=== PATIENT | male | born 1955 | race Caucasian/White ===

== ENCOUNTER → 2020-04-02 13:40 | Outpatient (CLI) | payer MEDICARE, SELFPAY ==
[2020-04-02 14:08] LABS: Alanine Aminotransferase 28 U/L (12-78); Albumin Level 4.7 g/dl (3.5-5.0); Albumin/Globulin Ratio 1.5 (1.1-1.8); Alkaline Phosphatase 77 U/L (38-126); Anion Gap 16.8 mEq/L (5-15); Aspartate Amino Transferase 31 U/L (17-59); Bilirubin,Total 0.3 mg/dl (0.2-1.3); Blood Urea Nitrogen 24 mg/dl (9-20); Calcium 9.9 mg/dl (8.4-10.2); Carbon Dioxide 25 mmol/L (22.0-30.0); Chloride 98 mmol/L (98-107); Chol/HDL Ratio 2.5 (1-3.5); Cholesterol 145 mg/dl (140-200); Estimated Glomerular Filt Rate 85 ml/min (>60); GFR (African American) 102 ML/MIN (>60); Globulin 3.1 g/dL (1.3-3.2); Glucose 102 mg/dl (74-100); HDL Cholesterol 59 mg/dl (40-60); Potassium 3.8 mmoL/L (3.5-5.1); Sodium 136 mmol/L (136-145); Total Protein,Serum 7.8 g/dl (6.3-8.2); Triglycerides 117 mg/dl (30-150); VLDL Cholesterol 23 mg/dL (0-40)
[2020-04-02 14:19] LABS: Direct LDL Cholesterol 74.54 mg/dL (100-129)
[2020-04-02 14:20] LABS: Basophils # 0.1 K/mm3 (0-0.2); Basophils % 0.6 % (0.1-2.0); Eosinophils # 0.2 K/mm3 (0.0-0.4); Eosinophils % 2.5 % (0.1-12.0); Hematocrit 36.3 % (42.0-52.0); Hemoglobin 12.7 g/dL (14.1-18.0); Lymphocytes # 2.8 K/mm3 (0.7-4.5); Lymphocytes % 34.6 % (10-50); Mean Corpuscular HGB Conc 35.1 g/dL (31.8-35.4); Mean Corpuscular Hemoglobin 30.2 pg (27.0-31.2); Mean Corpuscular Volume 86.2 fl (80-94); Mean Platelet Volume 9.2 fl (7.4-10.4); Monocytes # 0.5 K/mm3 (0.1-1.0); Monocytes % 6.5 % (1.7-9.3); Neutrophils # 4.5 K/mm3 (1.8-7.8); Neutrophils % 55.8 % (37.0-80.0); Platelet Count 250 K/mm3 (142-424); Red Blood Count 4.21 M/mm3 (4.60-6.20); Red Cell Distribution Width 13.3 % (11.5-17.5)
[2020-04-02 15:59] LABS: Prostate Specific Ag Screen 0.4 ng/ml (0.0-4.0)
== END ==
PROVIDERS: Visit Provider Family Medicine
DX: G89.29 Other chronic pain (principal); I10 Essential (primary) hypertension; M54.5 Low back pain; Z12.5 Encounter for screening for malignant neoplasm of prostate
CPT/HCPCS: 80053; 80061; 85025; G0103

== ENCOUNTER → 2020-08-02 12:27 | Outpatient (CLI) | payer MEDICARE, SELFPAY ==
[2020-08-02 12:32] LABS: Microscopic, Urine URINE MICROSCOPIC (MICROSCOPIC)
[2020-08-02 13:06] LABS: Appearance,Urine CLEAR (Clear); Bilirubin,Urine Negative (Negative); Blood, Urine Negative (Negative); Color,Urine YELLOW (Yellow); Glucose,Urine (UA) Negative (Negative); Ketones,Urine Negative (Negative); Leukocyte Esterase,Urine Negative (Negative); Nitrate,Urine Negative (Negative); Protein,Urine Negative (Negative); Urobilinogen,Urine 0.2 EU/dl (0.2)
[2020-08-02 13:10] LABS: Basophils # 0.1 K/mm3 (0-0.2); Basophils % 0.8 % (0.1-2.0); Eosinophils # 0.2 K/mm3 (0.0-0.4); Eosinophils % 3.1 % (0.1-12.0); Hematocrit 39.9 % (42.0-52.0); Hemoglobin 13.5 g/dL (14.1-18.0); Lymphocytes # 2.4 K/mm3 (0.7-4.5); Lymphocytes % 34.5 % (10-50); Mean Corpuscular HGB Conc 33.8 g/dL (31.8-35.4); Mean Corpuscular Hemoglobin 29.2 pg (27.0-31.2); Mean Corpuscular Volume 86.6 fl (80-94); Mean Platelet Volume 9.1 fl (7.4-10.4); Monocytes # 0.4 K/mm3 (0.1-1.0); Neutrophils # 3.8 K/mm3 (1.8-7.8); Neutrophils % 55.6 % (37.0-80.0); Platelet Count 267 K/mm3 (142-424); Red Cell Distribution Width 13.5 % (11.5-17.5); White Blood Count 6.9 K/mm3 (4.8-10.8)
[2020-08-02 13:27] LABS: Alanine Aminotransferase 37 U/L (12-78); Albumin Level 4.7 g/dl (3.5-5.0); Albumin/Globulin Ratio 1.6 (1.1-1.8); Alkaline Phosphatase 63 U/L (38-126); Anion Gap 14.9 mEq/L (5-15); Aspartate Amino Transferase 30 U/L (17-59); Bilirubin,Total 0.4 mg/dl (0.2-1.3); Blood Urea Nitrogen 27 mg/dl (9-20); Calcium 10.2 mg/dl (8.4-10.2); Carbon Dioxide 28 mmol/L (22.0-30.0); Chloride 102 mmol/L (98-107); Estimated Glomerular Filt Rate 85 ml/min (>60); GFR (African American) 102 ML/MIN (>60); Globulin 2.9 g/dL (1.3-3.2); Glucose 110 mg/dl (74-100); Potassium 3.9 mmoL/L (3.5-5.1); Sodium 141 mmol/L (136-145); Total Protein,Serum 7.6 g/dl (6.3-8.2)
[2020-08-02 13:33] LABS: INR 0.92 (0.9-1.1); Prothrombin Time 10.3 seconds (9.4-11.8)
[2020-08-02 13:36] LABS: Intact Parathyroid Hormone 52.7 pg/mL (7.5-53.5)
[2020-08-02 13:42] LABS: 25-OH Vitamin D, Total 48.4 ng/mL (30-100)
== END ==
PROVIDERS: Visit Provider Family Medicine
DX: Z01.818 Encounter for other preprocedural examination (principal); G47.00 Insomnia, unspecified; E55.9 Vitamin D deficiency, unspecified; Z98.890 Other specified postprocedural states; I10 Essential (primary) hypertension; E78.5 Hyperlipidemia, unspecified; D64.9 Anemia, unspecified
CPT/HCPCS: 36415; 80053; 81001; 82306; 83970; 85025; 85610; 86850

== ENCOUNTER → 2020-09-23 09:16 | Outpatient (CLI) | payer MEDICARE, SELFPAY ==
[2020-09-23 09:26] LABS: Microscopic, Urine URINE MICROSCOPIC (MICROSCOPIC)
[2020-09-23 09:54] LABS: Appearance,Urine CLEAR (Clear); Bilirubin,Urine Negative (Negative); Blood, Urine Negative (Negative); Color,Urine YELLOW (Yellow); Glucose,Urine (UA) Negative (Negative); Ketones,Urine Negative (Negative); Leukocyte Esterase,Urine Negative (Negative); Nitrate,Urine Negative (Negative); PH,Urine 6.5 (5.0-8.5); Protein,Urine Negative (Negative); Urobilinogen,Urine 0.2 EU/dl (0.2)
[2020-09-23 10:11] LABS: Squamous Epithelial Cell,Urine Occasional #/hpf (0-5)
[2020-09-23 10:34] LABS: Basophils # 0.1 K/mm3 (0-0.2); Basophils % 0.7 % (0.1-2.0); Eosinophils # 0.2 K/mm3 (0.0-0.4); Eosinophils % 2.2 % (0.1-12.0); Hematocrit 41.6 % (42.0-52.0); Lymphocytes # 3.2 K/mm3 (0.7-4.5); Mean Corpuscular HGB Conc 33.6 g/dL (31.8-35.4); Mean Corpuscular Hemoglobin 29.6 pg (27.0-31.2); Mean Corpuscular Volume 88.2 fl (80-94); Mean Platelet Volume 9.3 fl (7.4-10.4); Monocytes # 0.4 K/mm3 (0.1-1.0); Monocytes % 5.1 % (1.7-9.3); Neutrophils # 4.2 K/mm3 (1.8-7.8); Platelet Count 250 K/mm3 (142-424); Red Blood Count 4.71 M/mm3 (4.60-6.20); Red Cell Distribution Width 13.5 % (11.5-17.5)
[2020-09-23 10:54] LABS: INR 0.93 (0.9-1.1); Prothrombin Time 10.4 seconds (9.4-11.8)
[2020-09-23 12:02] LABS: Alanine Aminotransferase 53 U/L (12-78); Albumin Level 5.2 g/dl (3.5-5.0); Albumin/Globulin Ratio 1.6 (1.1-1.8); Alkaline Phosphatase 72 U/L (38-126); Anion Gap 16.8 mEq/L (5-15); Aspartate Amino Transferase 34 U/L (17-59); Bilirubin,Total 0.7 mg/dl (0.2-1.3); Blood Urea Nitrogen 22 mg/dl (9-20); Calcium 10.5 mg/dl (8.4-10.2); Carbon Dioxide 28 mmol/L (22.0-30.0); Chloride 98 mmol/L (98-107); Estimated Glomerular Filt Rate 75 ml/min (>60); GFR (African American) 91 ML/MIN (>60); Globulin 3.2 g/dL (1.3-3.2); Glucose 119 mg/dl (74-100); Potassium 3.8 mmoL/L (3.5-5.1); Sodium 139 mmol/L (136-145); Total Protein,Serum 8.4 g/dl (6.3-8.2)
[2020-09-23 12:14] LABS: Intact Parathyroid Hormone 53.7 pg/mL (7.5-53.5)
[2020-09-23 12:19] LABS: 25-OH Vitamin D, Total 36.9 ng/mL (30-100)
[2020-09-24 11:25] LABS: Covid-19 Nasal PCR Sendout P&C NEGATIVE
== END ==
PROVIDERS: Visit Provider Family Medicine
DX: Z01.818 Encounter for other preprocedural examination (principal); Z03.818 Encounter for observation for suspected exposure to other biological agents ruled out; M54.5 Low back pain; Z51.81 Encounter for therapeutic drug level monitoring; E55.9 Vitamin D deficiency, unspecified
CPT/HCPCS: 36415; 80053; 81001; 82306; 83970; 85025; 85610; 86850; U0004

== ENCOUNTER → 2021-02-24 17:46 | Outpatient (CLI) | payer MEDICARE, SELFPAY ==
[2021-02-24 18:19] LABS: Basophils # 0.1 K/mm3 (0-0.2); Basophils % 0.6 % (0.1-2.0); Eosinophils # 0.2 K/mm3 (0.0-0.4); Eosinophils % 2.5 % (0.1-12.0); Hematocrit 39.3 % (42.0-52.0); Hemoglobin 13.5 g/dL (14.1-18.0); Lymphocytes # 2.5 K/mm3 (0.7-4.5); Lymphocytes % 29.8 % (10-50); Mean Corpuscular HGB Conc 34.5 g/dL (31.8-35.4); Mean Corpuscular Hemoglobin 28.4 pg (27.0-31.2); Mean Corpuscular Volume 82.3 fl (80-94); Mean Platelet Volume 10.3 fl (7.4-10.4); Monocytes # 0.6 K/mm3 (0.1-1.0); Monocytes % 6.8 % (1.7-9.3); Neutrophils # 5.1 K/mm3 (1.8-7.8); Neutrophils % 60.2 % (37.0-80.0); Platelet Count 252 K/mm3 (142-424); Red Blood Count 4.78 M/mm3 (4.60-6.20); Red Cell Distribution Width 14.8 % (11.5-17.5); White Blood Count 8.4 K/mm3 (4.8-10.8)
[2021-02-24 18:28] LABS: Alanine Aminotransferase 29 U/L (12-78); Albumin Level 4.5 g/dl (3.5-5.0); Albumin/Globulin Ratio 1.6 (1.1-1.8); Alkaline Phosphatase 80 U/L (38-126); Anion Gap 13.8 mEq/L (5-15); Aspartate Amino Transferase 34 U/L (17-59); Bilirubin,Total 0.5 mg/dl (0.2-1.3); Blood Urea Nitrogen 28 mg/dl (9-20); Calcium 9.3 mg/dl (8.4-10.2); Carbon Dioxide 24 mmol/L (22.0-30.0); Chloride 106 mmol/L (98-107); Estimated Glomerular Filt Rate 97 ml/min (>60); GFR (African American) 117 ML/MIN (>60); Globulin 2.9 g/dL (1.3-3.2); Glucose 96 mg/dl (74-100); Potassium 3.8 mmoL/L (3.5-5.1); Sodium 140 mmol/L (136-145); Total Protein,Serum 7.4 g/dl (6.3-8.2)
== END ==
PROVIDERS: Visit Provider Family Medicine
DX: I10 Essential (primary) hypertension (principal)
CPT/HCPCS: 80053; 85025

== ENCOUNTER → 2021-04-22 12:25 | Outpatient (CLI) | payer MEDICARE, SELFPAY ==
--- NOTE | 2021-04-22 12:30 | XR_ITS ---
PROCEDURE: XR KNEE RT 4V CLINICAL INDICATION: RT knee pain COMPARISON: No exams were available for comparison FINDINGS: No fracture or dislocation. No lytic or blastic change. There is normal mineralization. There are mild osteoarthritic changes involving all 3 compartments. Enthesophyte is present at the superior patellar region. Other findings:None. IMPRESSION: Mild osteoarthritis Dictated by: Johan Maldonado MD 04/22/2021 13:37 Johan Maldonado MD in [place] 04/22/2021 13:37
== END ==
PROVIDERS: PCP Family Medicine; Visit Provider Orthopaedic Surgery
DX: M25.561 Pain in right knee (principal)
CPT/HCPCS: 73564

== ENCOUNTER → 2021-05-20 10:00 | Outpatient (CLI) | payer MEDICARE, SELFPAY ==
--- NOTE | 2021-05-20 10:02 | MR_ITS ---
PROCEDURE: MR KNEE RT WO CON CLINICAL INDICATION: RT knee pain COMPARISON: CR XR KNEE RT 4V from 04/22/2021 TECHNIQUE: Routine multiplanar multi echo sequences are performed without gadolinium enhancement. FINDINGS: The cruciate ligaments, collateral ligaments, and patellar tendon appears intact. There is some heterogeneous increased T2 signal within the quadriceps tendon distally and anteriorly and laterally consistent with a partial tear of the anterior bundles of the quadriceps tendon.. The posterior horn of the medial meniscus has an abnormal contour centrally along its lateral aspect with increased T2 signal involving the posterior horn more medial with some truncation of the body of the medial meniscus consistent with medial meniscal tear. There is some irregularity of the patellar cartilage with minimal lateral patellar subluxation. The patellofemoral ligaments appear intact. There are mild osteoarthritic changes of the medial and lateral compartment. No bone bruise apparent. Small knee joint effusion is present. A marker is placed along the anterior proximal tibia at the patient's area of pain which represents the tibial tuberosity region. There is no abnormal signal at this area. No fluid collections or bony abnormalities apparent. There is some minimal subcutaneous edema at this region. IMPRESSION: 1. Tear of the posterior horn of the medial meniscus as described above 2. Small knee joint effusion with mild osteoarthritic change 3. Partial tear of the quadriceps tendon anterior bundle age indeterminate 4. Minimal amount of subcutaneous edema at the tibial tuberosity. No fluid collection or mass apparent Dictated by: Johan Maldonado MD 05/20/2021 15:31 Johan Maldonado MD in [place] 05/20/2021 15:31
== END ==
PROVIDERS: PCP Family Medicine; Visit Provider Orthopaedic Surgery
DX: G89.29 Other chronic pain (principal); M16.11 Unilateral primary osteoarthritis, right hip; M25.561 Pain in right knee
CPT/HCPCS: 73721

== ENCOUNTER → 2021-07-04 10:43 | Outpatient (CLI) | payer MEDICARE, SELFPAY ==
--- NOTE | 2021-07-04 10:56 | XR_ITS ---
PROCEDURE: XR CHEST 2V CLINICAL HISTORY: preop; surgery 07/07/21; hypertension COMPARISON: No exams were available for comparison FINDINGS: The cardiomediastinal silhouette and pulmonary vascularity are within normal limits. The lungs are clear without infiltrates, suspicious nodules, or pleural effusions. Degenerative change thoracic spine IMPRESSION: No acute findings. Dictated by: Johan Maldonado MD 07/04/2021 12:13 Johan Maldonado MD in [place] 07/04/2021 12:13
[2021-07-04 11:20] LABS: Basophils # 0.1 K/mm3 (0-0.2); Basophils % 1.2 % (0.1-2.0); Eosinophils # 0.2 K/mm3 (0.0-0.4); Eosinophils % 3.2 % (0.1-12.0); Hematocrit 42.4 % (42.0-52.0); Hemoglobin 14.5 g/dL (14.1-18.0); Lymphocytes # 2.5 K/mm3 (0.7-4.5); Mean Corpuscular HGB Conc 34.3 g/dL (31.8-35.4); Mean Corpuscular Hemoglobin 29.8 pg (27.0-31.2); Mean Corpuscular Volume 87.1 fl (80-94); Mean Platelet Volume 9.1 fl (7.4-10.4); Monocytes # 0.4 K/mm3 (0.1-1.0); Monocytes % 5.3 % (1.7-9.3); Neutrophils # 3.3 K/mm3 (1.8-7.8); Neutrophils % 51.4 % (37.0-80.0); Platelet Count 255 K/mm3 (142-424); Red Blood Count 4.87 M/mm3 (4.60-6.20); Red Cell Distribution Width 13.9 % (11.5-17.5); White Blood Count 6.5 K/mm3 (4.8-10.8)
[2021-07-04 12:07] LABS: Alanine Aminotransferase 31 U/L (12-78); Albumin Level 4.5 g/dl (3.5-5.0); Albumin/Globulin Ratio 1.5 (1.1-1.8); Alkaline Phosphatase 68 U/L (38-126); Anion Gap 14.2 mEq/L (5-15); Aspartate Amino Transferase 30 U/L (17-59); Bilirubin,Total 0.5 mg/dl (0.2-1.3); Blood Urea Nitrogen 25 mg/dl (9-20); Calcium 10.1 mg/dl (8.4-10.2); Carbon Dioxide 25 mmol/L (22.0-30.0); Chloride 105 mmol/L (98-107); Estimated Glomerular Filt Rate 135 ml/min (>60); GFR (African American) 163 ML/MIN (>60); Glucose 118 mg/dl (74-100); Potassium 4.2 mmoL/L (3.5-5.1); Sodium 140 mmol/L (136-145); Total Protein,Serum 7.5 g/dl (6.3-8.2)
== END ==
PROVIDERS: Visit Provider Orthopaedic Surgery
DX: Z01.818 Encounter for other preprocedural examination (principal); Z11.52 Encounter for screening for COVID-19; U07.1 COVID-19; M25.561 Pain in right knee
CPT/HCPCS: 36415; 71046; 80053; 85025; C9803; U0003; U0005

== ENCOUNTER → 2022-03-16 15:42 | Outpatient (CLI) | payer MEDICARE, SELFPAY ==
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
== END ==
PROVIDERS: PCP Family Medicine; Visit Provider Family Medicine
DX: M25.532 Pain in left wrist (principal)
CPT/HCPCS: 73110

== ENCOUNTER → 2022-03-30 15:58 | Outpatient (CLI) | payer MEDICARE, SELFPAY ==
--- NOTE | 2022-03-30 15:58 | MR_ITS ---
PROCEDURE INFORMATION: Exam: MR Left Upper Extremity Joint Without Contrast; Wrist Exam date and time: 03/30/2022 4:25 PM Age: 66 years old Clinical indication: Pain; Wrist; Left; Additional info: Scaphoid FX TECHNIQUE: Imaging protocol: Magnetic resonance imaging of the Left upper extremity without contrast. Exam focused on the wrist. COMPARISON: CR XR WRIST LT W SCAPHOID 03/16/2022 3:50 PM FINDINGS: Bones and cartilage: There is no acute fracture or dislocation. No aggressive bone lesions are present. Specifically, there is no fracture of the scaphoid. Joint spaces: A mild effusion involves the wrist. There is mild primary osteoarthritis of the thumb carpometacarpal joint. Scapholunate ligament: Unremarkable. No tear. Lunotriquetral ligament: Unremarkable. No tear. Triangular fibrocartilage complex: Unremarkable. No tear. Flexor compartment tendons: Unremarkable. No tear. Extensor compartment tendons: Trace extensor tenosynovitis is present. No tendon tear. Muscles: Unremarkable. No acute abnormality. Soft tissues: No suspicious soft tissue mass. IMPRESSION: 1. No fracture of the scaphoid or other imaged bone in the region. 2. Mild primary osteoarthritis of the thumb carpometacarpal joint. 3. Trace extensor tenosynovitis. 4. Mild wrist joint effusion.
== END ==
PROVIDERS: PCP Family Medicine; Visit Provider Family Medicine
DX: M25.532 Pain in left wrist (principal); S62.002A Unspecified fracture of navicular [scaphoid] bone of left wrist, initial encounter for closed fracture
CPT/HCPCS: 73221

== ENCOUNTER → 2022-09-25 11:40 | Outpatient (CLI) | payer MEDICARE, SELFPAY ==
[2022-09-25 13:41] LABS: Basophils # 0.1 K/mm3 (0-0.2); Basophils % 0.8 % (0.1-2.0); Eosinophils # 0.2 K/mm3 (0.0-0.4); Hematocrit 40.5 % (42.0-52.0); Hemoglobin 13.9 g/dL (14.1-18.0); Lymphocytes # 2.4 K/mm3 (0.7-4.5); Lymphocytes % 32.4 % (10-50); Mean Corpuscular HGB Conc 34.2 g/dL (31.8-35.4); Mean Corpuscular Hemoglobin 29.6 pg (27.0-31.2); Mean Corpuscular Volume 86.5 fl (80-94); Mean Platelet Volume 9.5 fl (7.4-10.4); Monocytes # 0.4 K/mm3 (0.1-1.0); Monocytes % 5.7 % (1.7-9.3); Neutrophils # 4.3 K/mm3 (1.8-7.8); Neutrophils % 58.2 % (37.0-80.0); Platelet Count 247 K/mm3 (142-424); Red Blood Count 4.68 M/mm3 (4.60-6.20); Red Cell Distribution Width 13.3 % (11.5-17.5); White Blood Count 7.3 K/mm3 (4.8-10.8)
[2022-09-25 14:07] LABS: Alanine Aminotransferase 38 U/L (12-78); Albumin Level 4.7 g/dl (3.5-5.0); Albumin/Globulin Ratio 1.7 (1.1-1.8); Alkaline Phosphatase 65 U/L (38-126); Anion Gap 12.5 mEq/L (5-15); Aspartate Amino Transferase 32 U/L (17-59); Bilirubin,Total 0.6 mg/dl (0.2-1.3); Blood Urea Nitrogen 27 mg/dl (9-20); Calcium 9.3 mg/dl (8.4-10.2); Carbon Dioxide 30 mmol/L (22.0-30.0); Chloride 101 mmol/L (98-107); Chol/HDL Ratio 3.7 (1-3.5); Cholesterol 174 mg/dl (140-200); Estimated Glomerular Filt Rate 75 ml/min (>60); GFR (African American) 90 ML/MIN (>60); Globulin 2.8 g/dL (1.3-3.2); Glucose 118 mg/dl (74-100); HDL Cholesterol 47 mg/dl (40-60); Potassium 3.5 mmoL/L (3.5-5.1); Sodium 140 mmol/L (136-145); Total Protein,Serum 7.5 g/dl (6.3-8.2); Triglycerides 276 mg/dl (30-150); VLDL Cholesterol 55 mg/dL (0-40)
[2022-09-25 14:30] LABS: Direct LDL Cholesterol 86.81 mg/dL (100-129)
[2022-09-25 14:42] LABS: Prostate Specific Ag Screen 0.4 ng/ml (0.0-4.0); Thyroid Stimulating Hormone 1.47 uIU/mL (0.465-4.68)
== END ==
PROVIDERS: PCP Family Medicine; Visit Provider Family Medicine
DX: I10 Essential (primary) hypertension (principal); Z12.5 Encounter for screening for malignant neoplasm of prostate; Z86.73 Personal history of transient ischemic attack (TIA), and cerebral infarction without residual deficits; Z79.899 Other long term (current) drug therapy
CPT/HCPCS: 80053; 80061; 84443; 85025; G0103

== ENCOUNTER → 2023-01-11 18:37 | Outpatient (CLI) | payer MEDICARE, SELFPAY ==
[2023-01-11 19:16] LABS: Basophils % 0.4 % (0.1-2.0); Eosinophils # 0.2 K/mm3 (0.0-0.4); Eosinophils % 2.8 % (0.1-12.0); Hematocrit 38.7 % (42.0-52.0); Lymphocytes # 2.5 K/mm3 (0.7-4.5); Lymphocytes % 32.6 % (10-50); Mean Corpuscular HGB Conc 33.7 g/dL (31.8-35.4); Mean Corpuscular Hemoglobin 30.1 pg (27.0-31.2); Mean Corpuscular Volume 89.4 fl (80-94); Monocytes # 0.6 K/mm3 (0.1-1.0); Monocytes % 7.2 % (1.7-9.3); Neutrophils # 4.4 K/mm3 (1.8-7.8); Platelet Count 213 K/mm3 (142-424); Red Blood Count 4.32 M/mm3 (4.60-6.20); Red Cell Distribution Width 13.3 % (11.5-17.5); White Blood Count 7.7 K/mm3 (4.8-10.8)
[2023-01-11 19:46] LABS: Alanine Aminotransferase 45 U/L (12-78); Albumin Level 4.5 g/dl (3.5-5.0); Albumin/Globulin Ratio 1.6 (1.1-1.8); Alkaline Phosphatase 61 U/L (38-126); Anion Gap 11.8 mEq/L (5-15); Aspartate Amino Transferase 44 U/L (17-59); Bilirubin,Total 0.7 mg/dl (0.2-1.3); Blood Urea Nitrogen 21 mg/dl (9-20); Calcium 9.3 mg/dl (8.4-10.2); Carbon Dioxide 28 mmol/L (22.0-30.0); Chloride 105 mmol/L (98-107); Chol/HDL Ratio 3.5 (1-3.5); Cholesterol 166 mg/dl (140-200); Estimated Glomerular Filt Rate 84 ml/min (>60); GFR (African American) 102 ML/MIN (>60); Globulin 2.8 g/dL (1.3-3.2); Glucose 91 mg/dl (74-100); HDL Cholesterol 47 mg/dl (40-60); Potassium 3.8 mmoL/L (3.5-5.1); Sodium 141 mmol/L (136-145); Total Protein,Serum 7.3 g/dl (6.3-8.2); Triglycerides 230 mg/dl (30-150); VLDL Cholesterol 46 mg/dL (0-40)
[2023-01-11 19:49] LABS: Hemoglobin A1C 5.6 % (4.0-6.0)
[2023-01-11 19:57] LABS: Direct LDL Cholesterol 85.51 mg/dL (100-129)
== END ==
PROVIDERS: PCP Family Medicine; Visit Provider Family Medicine
DX: I10 Essential (primary) hypertension (principal); E11.9 Type 2 diabetes mellitus without complications; Z86.73 Personal history of transient ischemic attack (TIA), and cerebral infarction without residual deficits
CPT/HCPCS: 80053; 80061; 83036; 85025

== ENCOUNTER → 2023-02-01 12:46 | Outpatient (POV) | payer MEDICARE, SELFPAY ==
[2023-02-01 13:10] VITALS: BP 136/73; PULSE 67; RESP 18; O2SAT 98; BMI 28.5
--- NOTE | 2023-02-01 14:48 | EXP.PAIN.OV ---
HPI Data of Consult Patient: new to practice Consult date: 02/01/23 Requesting Physician: Marcia Guerrero APRN Primary Care Provider: Nikos Parada MD Consult Narrative Reason for consult: Mid/low back pain, bilateral lower extremity pain History of present illness: Mr. Lamar is a 67 year old male who presents today as a new patient. He is a referral from Dr. Drew Parada's office. Today he rates his pain a 8 out of 10. He states his pain is all in his low back with radiating symptoms into his bilateral lower extremities. Patient states this has been going on for years and progressively worsened over time. Patient denies any new trauma or injury. He describes this pain as a sharp, stabbing sensation that is worse with increased activity. He does state the pain is debilitating. It does interfere with his ability to perform activities of daily living such as cooking and cleaning. Patient has had a laminectomy in 2016 as well as 2 prior fusions 1 at [facility] and one at in 2018. Patient does state that the second procedure was due to loose hardware that they were going to go in and fix however he had a stroke between that timeframe and it had to be postponed for a year. He does state following his last surgery he did start having more mid back pain as well. Patient has had multiple injections from a previous facility there in [facility]. He states none of them seem to provide prolonged relief. He is also had an external spinal stimulator with no additional relief. Patient has tried [id number] medications such as Tylenol and ibuprofen along with heat and ice and topicals with no additional relief. Patient had physical therapy however he states he had no additional change but occasionally it would cause worsening pain symptoms. Patient states that his pain does affect his ability to sleep and he is on a sleeping medication due to this. Patient does have to take frequent breaks when walking. He states he continues to walk 1 mile per day. He does use a cane due to his low back pain as well as his residual balance issues related to his stroke. Patient is interested and possible pain pump therapy. His Hernan is [id number]. Its been reviewed and appropriate. CC: Marcia Guerrero APRN [facility] Disclaimer: The information contained in this section may have been updated after the patient was seen, as this information can be updated by other users. Medical History (Updated 02/01/23 @ 14:53 by Marcia Guerrero APRN) Carotid artery disease HLD (hyperlipidemia) HTN (hypertension) Stroke Surgical History (Updated 02/01/23 @ 13:14 by Hillary Bacon, RN) H/O carotid endarterectomy History of laminectomy History of lumbar fusion Social History (Updated 02/01/23 @ 13:17 by Hillary Bacon, RN) Smoking Status: Former smoker alcohol intake: current substance use type: denies use current occupational status: other Travel in the last 8 weeks: None household members: significant other housing: house Review of Systems Review of Systems Review of systems:: pertinent systems reviewed and negative unless documented below Review of systems (narrative): Review of Systems: General: No recent weight changes, no fever, no sleep disturbances Respiratory: No cough, no shortness of air, no recurring pulmonary infections Cardiovascular/peripheral vascular: No chest pain, no palpitations, no edema, no shortness of breath Gastrointestinal: No new onset incontinence, normal bowel movements reported Genitourinary: No new onset incontinence Musculoskeletal: Low back pain, bilateral leg pain Psychiatric: [Normal mood/affect] Neurological: [Denies weakness in extremities], [denies balance issues] Meds Home Medications and Allergies Home Medications Medication Instructions Recorded Confirmed Type multivitamin 1 cap PO DAILY VITAMIN 04/02/20 02/01/23 History aspirin 81 mg tablet,delayed 81 mg PO DAILY Blood thinner 02/01/23
== END ==
PROVIDERS: PCP Family Medicine; Visit Provider Nurse Practitioner Family
DX: M51.16 Intervertebral disc disorders with radiculopathy, lumbar region (principal); M96.1 Postlaminectomy syndrome, not elsewhere classified; Z98.890 Other specified postprocedural states
CPT/HCPCS: 99202; G0463

== ENCOUNTER → 2023-02-01 13:37 | Outpatient (CLI) | payer MEDICARE, SELFPAY ==
--- NOTE | 2023-02-01 13:42 | XR_ITS ---
FINAL REPORT CLINICAL HISTORY: mid and lower back pain FINDINGS: THORACIC SPINE Two views demonstrate no acute fracture. There is moderate diffuse spondylosis There is no malalignment. IMPRESSION: Degenerative changes as above. LUMBAR SPINE Three views demonstrate no acute fracture. There are postoperative changes from fusion from L2-S1. There is moderate diffuse degenerative disc disease. There is no malalignment. IMPRESSION: Degenerative and postoperative changes as above. Reviewed, Interpreted and Dictated by Sveta Mercedes MD Transcribed by Michelle Avelar Authenticated and [facility]
== END ==
PROVIDERS: PCP Family Medicine; Visit Provider Anesthesiology
DX: M54.6 Pain in thoracic spine (principal); M54.50 Low back pain, unspecified
CPT/HCPCS: 72084; 99202; G0463

== ENCOUNTER → 2023-02-16 11:50 | Outpatient (POV) | payer MEDICARE, SELFPAY ==
--- NOTE | 2023-02-16 12:33 | EXP.PAIN.SOA ---
[facility] Pain Management SOAP Note Subjective:: This patient is a very pleasant 67-year-old male that comes our clinic today for follow-up visit. Receiving thoracic and lumbar x-rays. Patient is status post 2 separate lumbar fusions. X-rays demonstrate degenerative changes in the lumbar spine. Moderate diffuse degenerative disc disease. Patient complains of low back pain that he describes as constant, dull, aching. Patient also complaining of right hip and leg radicular symptoms. Patient has tried and failed multiple cortisone injections. Tried and failed physical therapy. Home exercise program. NSAIDs. Patient does take Tylenol extra strength when the pain is too much. Patient rates his pain today 8/10. Patient is scheduled for a psych eval on February 26, 2023. Objective:: Patient is awake alert [place] x3. In no acute distress. Flexion-extension lumbar spine somewhat guarded secondary to pain. Deep tendon reflexes upper and lower extremities normal. Motor strength upper and lower extremities normal. There is no gross sensory deficit. Gait is normal. Assessment:: A copyDegenerative disc lumbar spine multilevels. He. Lumbar postlaminectomy syndrome. Plan:: Discussed in detail with the patient regarding intrathecal pain pump trial. Also, discussed permanent intrathecal pain pump management. Answered his questions. He will move forward with psych eval on February 26, 2023. He will return to see us following this evaluation and for pain pump trial. The patient's Hernan #[id number] has been reviewed and appropriate [facility] Disclaimer: The information contained in this section may have been updated after the patient was seen, as this information can be updated by other users. Medical History (Updated 02/01/23 @ 14:53 by Marcia Guerrero APRN) Carotid artery disease HLD (hyperlipidemia) HTN (hypertension) Stroke Surgical History (Updated 02/01/23 @ 13:14 by Hillary Bacon RN) H/O carotid endarterectomy History of laminectomy History of lumbar fusion Social History (Updated 02/01/23 @ 13:17 by Hillary Bacon RN) Smoking Status: Former smoker alcohol intake: current substance use type: denies use current occupational status: other Travel in the last 8 weeks: None household members: significant other housing: house
[2023-02-16 13:21] VITALS: BP 113/72; PULSE 62; RESP 18; O2SAT 98; BMI 28.8
== END ==
PROVIDERS: PCP Family Medicine; Visit Provider Nurse Anesthetist, Certified Registered
DX: M51.36 Other intervertebral disc degeneration, lumbar region (principal); M96.1 Postlaminectomy syndrome, not elsewhere classified
CPT/HCPCS: 99212; G0463

== ENCOUNTER 2023-04-13 09:31 | Day surgery (SDC) | payer MEDICARE, SELFPAY ==
[2023-04-13] VITALS (7 sets, daily range): BP systolic 131–161; BP diastolic 69–89; PULSE 54–68; RESP 18–20; TEMP 36.6; O2SAT 97–99; BMI 27.9
--- NOTE | 2023-04-13 11:12 | PC.NURSE ---
pt sitting in chair, rates pain at a 1, dressing in place, C/D/I
--- NOTE | 2023-04-13 11:20 | PC.NURSE ---
pt sitting in chair, rating pain at a 1
--- NOTE | 2023-04-13 11:44 | PC.NURSE ---
pt is sitting in chair, states pain is still at a 1
--- NOTE | 2023-04-13 11:54 | PC.NURSE ---
pt up ambulating at this time, rates pain at 1, dressing still in place, C/D/I
--- NOTE | 2023-04-13 12:48 | P.PCN_ITS ---
Procedure Date: 04/13/23 Time: 12:48 Anesthesiologist:: Moris Jackson MD Complications:: None Pre-procedure Diagnosis:: Postlaminectomy syndrome lumbar spine with lumbar radiculopathy symptoms Post-procedure Diagnosis:: Same Indications for Procedure:: This patient is a pleasant 68-year-old white male who we are treating for low back pain with lumbar radiculopathy symptoms. He has increasing pain in his back and down both legs. He has had previous surgery with hardware in place. He has failed all previous conservative treatments including injections, oral medications, physical therapy and is not a candidate for surgery. He has had a successful psychological evaluation. He presents for intrathecal pump trial today. Procedure Details:: Pain pump trial Informed consent was obtained and the risk and benefits of the procedure was e xplained to the patient. The patient was taken to the procedure room and placed prone on the procedure table. Patient was prepped and draped in sterile fashion. C-arm fluoroscopy was used to view the lumbar spine. The skin and subcutaneous tissues were anesthetized using lidocaine. I placed a 18-gauge spinal needle into the L4-5 interspace and advanced until clear CSF was obtained. After this intrathecal catheter was inserted and advanced very easily to the L1 vertebral body. The needle was withdrawn. We were able to freely withdraw clear CSF through the catheter. We then injected intrathecal opioid single shot bolus of 25 mcg followed by saline and followed by the previous CSF that was withdrawn. The needle and catheter were then removed and a Band-Aid was placed. Patient tolerated the procedure well with no complications. We reevaluated the patient after 30 minutes to 1 hour. He was also reassessed by physical therapy. Pain was 90 to 100% better. He was much more functional. By all indications this did seem to be a successful intrathecal pump trial. Patient was discharged home neurologic intact with good relief of pain symptoms. Plan and Disposition:: We will follow-up with him in 1 week. We will plan on permanent placement with intrathecal morphine 1 mg per ml to start at 100 mcg/day. Catheter tip will be at the T8 vertebral body.
== END 2023-04-13 12:20 | disposition home or self-care (01) ==
PROVIDERS: PCP Family Medicine; Visit Provider Anesthesiology
DX: M96.1 Postlaminectomy syndrome, not elsewhere classified (principal); M54.16 Radiculopathy, lumbar region
CPT/HCPCS: 62323; 96365

== ENCOUNTER → 2023-05-14 10:46 | Outpatient (CLI) | payer MEDICARE, SELFPAY ==
[2023-05-14 11:18] LABS: Basophils % 0.4 % (0.1-2.0); Eosinophils # 0.3 K/mm3 (0.0-0.4); Eosinophils % 3.3 % (0.1-12.0); Hematocrit 40.5 % (42.0-52.0); Hemoglobin 13.2 g/dL (14.1-18.0); Lymphocytes # 2.3 K/mm3 (0.7-4.5); Lymphocytes % 31.6 % (10-50); Mean Corpuscular HGB Conc 32.5 g/dL (31.8-35.4); Mean Corpuscular Hemoglobin 29.7 pg (27.0-31.2); Mean Corpuscular Volume 91.3 fl (80-94); Mean Platelet Volume 8.5 fl (7.4-10.4); Monocytes # 0.4 K/mm3 (0.1-1.0); Monocytes % 5.4 % (1.7-9.3); Neutrophils # 4.4 K/mm3 (1.8-7.8); Neutrophils % 59.3 % (37.0-80.0); Platelet Count 209 K/mm3 (142-424); Red Blood Count 4.43 M/mm3 (4.60-6.20); Red Cell Distribution Width 13.9 % (11.5-17.5); White Blood Count 7.4 K/mm3 (4.8-10.8)
[2023-05-14 11:36] LABS: Amphetamine/Metha Screen,Urine Negative ng/ml (<1000); Barbiturates Screen,Urine Negative ng/ml (<200)
[2023-05-14 11:37] LABS: Benzodiazepines Screen,Urine Negative ng/ml (<200)
[2023-05-14 11:38] LABS: Cannabinoid Screen,Urine Negative ng/ml (<50); Cocaine Screen,Urine Negative ng/ml (<300)
[2023-05-14 11:39] LABS: Methadone Screen,Urine Negative ng/ml (<300)
[2023-05-14 11:40] LABS: Opiate Screen,Urine Negative ng/ml (<300); Phencyclidine Screen,Urine Negative ng/ml (<25)
[2023-05-14 12:06] LABS: Chloride 103 mmol/L (98-107)
[2023-05-14 12:07] LABS: Sodium 138 mmol/L (136-145)
[2023-05-14 12:09] LABS: Blood Urea Nitrogen 30 mg/dl (9-20); Estimated Glomerular Filt Rate 96 ml/min (>60); GFR (African American) 116 ML/MIN (>60)
[2023-05-14 12:10] LABS: Calcium 9.9 mg/dl (8.4-10.2); Carbon Dioxide 26 mmol/L (22.0-30.0); Glucose 103 mg/dl (74-100)
== END ==
PROVIDERS: PCP Family Medicine; Visit Provider Anesthesiology
DX: Z01.818 Encounter for other preprocedural examination (principal); Z79.899 Other long term (current) drug therapy
CPT/HCPCS: 36415; 80048; 80305; 85025

== ENCOUNTER 2023-05-18 08:53 | Day surgery (SDC) | payer MEDICARE, SELFPAY ==
[2023-05-15 16:52] VITALS: BMI 28.7
[2023-05-18] VITALS (8 sets, daily range): BP systolic 88–123; BP diastolic 47–72; PULSE 53–67; RESP 18; TEMP 36.2–43; O2SAT 95–96; BMI 27.8
--- NOTE | 2023-05-18 12:05 | P.PNANES_ITS ---
[facility] Disclaimer: The information contained in this section may have been updated after the patient was seen, as this information can be updated by other users. Medical History Carotid artery disease HLD (hyperlipidemia) HTN (hypertension) Stroke Surgical History H/O carotid endarterectomy History of laminectomy History of lumbar fusion Family History Other No significant family history Social History Smoking Status: Former smoker alcohol intake: current substance use type: denies use current occupational status: other Travel in the last 8 weeks: None household members: significant other housing: house [facility] Anesthesia Checklist Patient Identification Patient Identification: Verbal (Name & ) Structural Data Admitted From: Home Planned Operative Procedure/s: pain pump insertion Consent for Planned Operative Procedure(s) Verified: Yes NPO Status Verified Time NPO: 00:00 Additional verifications Anesthesia Reactions: No Hx Blood Transfusions: No Airway Assessment Mallampati Score:: Class I C-Spine Mobility Assessed: Yes TMJ Mobility Assessed: Yes Dentition: Good Dentition Neurological Assessment Level of Consciousness: Awake, Alert and Appropriate Anesthesia Plan Anesthesia Risk discussed: Yes Anesthesia Plan: Verified ASA Class: II Anesthesia Type: MAC
--- NOTE | 2023-05-18 16:08 | P.OP_ITS ---
Date of procedure: 05/18/23 Pre-op Diagnosis:: Postlaminectomy syndrome lumbar spine with lumbar radiculopathy symptoms Post-op Diagnosis:: Same Procedure performed:: Permanent placement intrathecal pain pump with tunneled intrathecal catheter and pump generator placement Surgeon:: Moris Jackson MD TRUCK DISPATCHER:: Other Anesthesia: MAC Estimated blood loss (mL): 5 Clinical Note:: This patient is a pleasant 68-year-old white male who we are treating for low back pain with lumbar radiculopathy symptoms. He has increasing pain in his back and down both legs. He has had previous surgery with hardware in place. He has failed all previous conservative treatments including oral medications, physical therapy, injections and he is not a candidate for any further surgery. He has had a successful psychological evaluation and a successful intrathecal pump trial. He presents for permanent placement of his intrathecal pain pump today. Operative findings:: None Operative note:: Informed consent was obtained and the risk and benefits of the procedure were explained to the patient. The patient was taken to the operating room placed prone on the procedure table. He was prepped and draped in sterile fashion. C- arm fluoroscopy was used to view the right flank. [place] between the 12th rib and iliac crest we anesthetize the skin and subcutaneous tissues. I made an incision and dissected out the pump generator pocket. C-arm fluoroscopy was then used to view the lumbar spine. The skin and subcutaneous tissues adjacent to the L4-L5 and L5-S1 interspace were anesthetized using lidocaine. I made an incision and dissected down to the lumbar paraspinous fascia. A 17-gauge spinal needle was inserted and advanced into the L4-5 interspace until clear CSF was obtained. After this intrathecal catheter was inserted and advanced very easily to the T8 vertebral body. Catheter location was checked in AP and lateral views of the catheter tip was found to be in posterior position. The stylette of the catheter and the needle withdrawn. The catheter was secured to the fascia with an anchoring device and 2-0 Prolene. I then filled the pump with 20 mils of intrathecal morphine 1 mg/mL. I tunneled the catheter from the back to the pump pocket and attached catheter to the pump. We withdrew clear CSF through the sideport. An antibiotic pouch was placed in the generator pocket. We will place the pump in the pocket. Both incisions were then closed with 2-0 Vicryl followed by subcutaneous absorbable lenora and 4-0 nylon. Patient tolerated the procedure well with no complications. Pump was interrogated and started at 100 mcg/day of intrathecal morphine. Patient was discharged home neurologic intact with good relief of pain symptoms. Plan and disposition: We will follow-up with this patient in 1 week for wound check. We will follow-up in 2 to 3 weeks for suture removal. We did send the patient home with Bactrim DS twice a day for 5 days. Condition: stable Disposition: PACU Complications:: None
== END 2023-05-18 14:31 | disposition home or self-care (01) ==
PROVIDERS: PCP Family Medicine; Visit Provider Anesthesiology
DX: M96.1 Postlaminectomy syndrome, not elsewhere classified (principal); M54.16 Radiculopathy, lumbar region
CPT/HCPCS: 62350; 62362; 96374; C1755; C1772

== ENCOUNTER → 2023-05-24 09:09 | Outpatient (POV) | payer MEDICARE, SELFPAY ==
--- NOTE | 2023-05-24 09:59 | EXP.PAIN.PRO ---
Procedure Date: 05/24/23 Time: 09:59 Anesthesiologist:: Marcia Guerrero APRN Complications:: None Pre-procedure Diagnosis:: Degenerative disc disease of lumbar spine with lumbar radiculopathy symptoms, lumbar postlaminectomy syndrome Post-procedure Diagnosis:: Same Indications for Procedure:: Patient is a pleasant 68-year-old male who presents today for follow-up of 1 week postop of intrathecal pain pump implant on 05/18/2023. We are currently treating the patient for degenerative disc disease of lumbar spine with lumbar radiculopathy symptoms, lumbar postlaminectomy syndrome. Today he rates his pain a 7 out of 10. Patient denies any new trauma or injury. Patient does state that he did have some intense itching without rash for the first few days however this has gotten significantly better and is not an issue currently. Patient does state that he is a little sore around his incisions however he does not really feel like he has gotten much improvement in his current pain level at this time. Patient is currently managed with morphine 1 mg/mL with a daily dose of 0.1 mg/day. He denies any side effects from this medication. His Hernan and is [id number]. Its been reviewed and appropriate. Physical Exam: General: Alert and oriented x3, no acute distress, pleasant and cooperative Lungs: Respirations even and unlabored, symmetrical chest expansion Eyes: PERRL Musculoskeletal: Flexion and extension of lumbar [spine] somewhat guarded secondary to pain, [antalgic gait noted] Neurological: Speech clear, no gross sensory deficit Procedure Details:: Informed consent was obtained and the risk and benefits of the procedure were explained to the patient. Patient was taken to the procedure room where noninvasive monitoring was placed including noninvasive blood pressure cuff and pulse oximeter. Patient's pump was interrogated and was reprogrammed to morphine 0.11 mg/day. The patient tolerated the procedure well with no complications. Plan and Disposition:: Patient tolerated his intrathecal increase with no complications. I have reviewed with the patient to continue his postop restriction of minimal bending, lifting or twisting, no submerging in water until his incisions are fully healed. Patient states that he was not given an abdominal binder on the surgery date. We will contact the operating room today and see if we can get 1 to be applied to the patient before he leaves the office. I have counseled the patient that we will plan on having him return back in 2 weeks for additional intrathecal adjustment and reprogram as well as having his sutures removed and Steri-Strips applied. Patient's incision sites were clean, dry, well approximated with minimal erythema noted and sutures intact in the midline incision. Patient did have his lateral incision closed with dissolvable lenora and Steri-Strips on the edges that are still intact. Patient will return to office in 2 weeks for reevaluation of symptoms and plan of care. Patient has been instructed to contact the clinic with any concerns before the next appointment. Dr. Jackson has reviewed this note and agrees with this plan of care. This note was dictated using voice recognition software and make contain errors or omissions. -- It Is medically necessary for this patient to continue to have their intrathecal pump refilled at regular intervals. This patient had an intrathecal pain pump implanted after meeting criteria of chronic intractable pain for greater than 3 months and failing conservative treatments. Patient has committed and been compliant to the treatment plan and all planned follow up care. Since implantation of the intrathecal pain pump, the patient has had decreased pain and been more functional. Oral medications have been reduced including intake of oral opioids. Patient continues to do well with intrathecal therapy with decrease in pain symptoms and increase in functional status. Stopping intrathecal me
[2023-05-24 12:45] VITALS: BP 133/76; PULSE 68; RESP 18; O2SAT 100; BMI 27.8
== END | disposition home or self-care (01) ==
PROVIDERS: PCP Family Medicine; Visit Provider Nurse Practitioner Family
DX: M51.16 Intervertebral disc disorders with radiculopathy, lumbar region (principal); M96.1 Postlaminectomy syndrome, not elsewhere classified; Z97.8 Presence of other specified devices
CPT/HCPCS: 62368; 99213; G0463

== ENCOUNTER → 2023-06-08 10:16 | Outpatient (POV) | payer MEDICARE, SELFPAY ==
--- NOTE | 2023-06-08 11:15 | A.OFFVIS_ITS ---
[facility] Pain Management SOAP Note Subjective:: This patient is a very pleasant 68-year-old male that comes our clinic today for 3-week follow-up after receiving intrathecal pain pump implantation. Sutures were removed from both incisions. Incisions are clean and dry and well approximated. Patient is very pleased with the results of the intrathecal pain pump implantation. He reports 95% improvement in terms of his overall low back pain as well as bilateral hip and leg pain. Patient rates his pain today 2/10. Patient is currently being managed with morphine sulfate 1 mg/mL at a rate of 0.1100 mg/day. Patient requesting PTM set up today. We will do this for him. Objective:: Patient is awake alert [place] x3. In no acute distress. Flexion-extension lumbar spine somewhat guarded secondary to pain. Deep tendon reflexes upper and lower extremities normal. Motor strength upper and lower extremities normal. There is no gross sensory deficit. Gait is normal. Assessment:: Degenerative disc lumbar spine multilevels. Lumbar radiculopathy. Lumbar postlaminectomy syndrome. Plan:: We will set of the patient's PTM today. We will educate the patient on the PTM use. Patient will return to clinic in 1 month for follow-up. [facility] Disclaimer: The information contained in this section may have been updated after the patient was seen, as this information can be updated by other users. Medical History Carotid artery disease HLD (hyperlipidemia) HTN (hypertension) Stroke Surgical History H/O carotid endarterectomy History of laminectomy History of lumbar fusion Family History Other No significant family history Social History Smoking Status: Former smoker alcohol intake: current substance use type: denies use current occupational status: other Travel in the last 8 weeks: None household members: significant other housing: house
[2023-06-08 12:22] VITALS: BP 114/64; PULSE 69; RESP 18; O2SAT 98; BMI 27.5
== END ==
PROVIDERS: PCP Family Medicine; Visit Provider Nurse Anesthetist, Certified Registered
DX: M51.16 Intervertebral disc disorders with radiculopathy, lumbar region (principal); M96.1 Postlaminectomy syndrome, not elsewhere classified; Z97.8 Presence of other specified devices; Z48.02 Encounter for removal of sutures
CPT/HCPCS: 62368; 99213; G0463

== ENCOUNTER → 2023-06-22 10:49 | Outpatient (POV) | payer MEDICARE, SELFPAY ==
--- NOTE | 2023-06-22 12:02 | A.OFFVIS_ITS ---
[facility] Pain Management SOAP Note Subjective:: This patient is a very pleasant 68-year-old male that comes our clinic today for follow-up regarding intrathecal pain pump management. Patient's implant was a couple of months ago. He is currently being managed with morphine sulfate 1 mg/mL at a rate of 0.1100 mg/day patient reports he is doing very well with his current settings. Uses his PTM occasionally. However, not daily. Patient able to walk 1 mile with minimal to no pain. He rates his pain today 2/10. I examined the patient's incisions in the lumbar spine. They are clean and dry. No redness or swelling. Patient's Hernan #[id number] has been reviewed and appropriate. Objective:: Patient is awake alert [place] x3. In no acute distress. Flexion-extension lumbar spine slightly guarded secondary to pain. Deep tendon reflexes upper and lower extremities normal. Motor strength upper and lower extremities normal. There is no gross sensory deficit. Gait is normal. Assessment:: Degenerative disc disease lumbar spine multilevels. Lumbar radiculopathy. Plan:: Patient is set for his intrathecal pain pump refill mid August. He is welcome to call us at any time if in fact he has any issues or questions. [facility] Disclaimer: The information contained in this section may have been updated after the patient was seen, as this information can be updated by other users. Medical History Carotid artery disease HLD (hyperlipidemia) HTN (hypertension) Stroke Surgical History H/O carotid endarterectomy History of laminectomy History of lumbar fusion Family History Other No significant family history Social History Smoking Status: Former smoker alcohol intake: current substance use type: denies use current occupational status: other Travel in the last 8 weeks: None household members: significant other housing: house
[2023-06-22 12:41] VITALS: BP 125/72; PULSE 80; RESP 19; O2SAT 97; BMI 27.9
== END ==
PROVIDERS: PCP Family Medicine; Visit Provider Nurse Practitioner Family
DX: M51.16 Intervertebral disc disorders with radiculopathy, lumbar region (principal); Z97.8 Presence of other specified devices
CPT/HCPCS: 99212; G0463

== ENCOUNTER → 2023-07-03 10:45 | Outpatient (POV) | payer MEDICARE, SELFPAY ==
[2023-07-03 10:50] VITALS: BP 144/71; PULSE 68; RESP 18; TEMP 36.8; O2SAT 98; BMI 27.8
--- NOTE | 2023-07-03 11:11 | EXP.PAIN.PRO ---
Procedure Date: 07/03/23 Time: 11:00 Anesthesiologist:: Delio Burgess CRNA Complications:: None Pre-procedure Diagnosis:: Degenerative disc disease lumbar spine multilevels. Lumbar radiculopathy. Lumbar postlaminectomy syndrome. Post-procedure Diagnosis:: Same. Indications for Procedure:: Patient is a very pleasant 68-year-old male that comes our clinic today for follow-up visit regarding intrathecal pain pump management. He is currently being managed with morphine sulfate 1 mg/mL at a rate of 0.1100 mg/day. Patient states he is having more lumbar back pain with activity. Patient requesting increase in the pump rate. I think this is reasonable. We will increase him by 20%. Procedure Details:: Details of the procedure explained to the patient. The patient's pump was interrogated. The rate was increased by 20%. His new rate is 0.1320 mg/day. Patient tolerated procedure without difficulty. No complications. Patient's PTM was also increased to match the 20% on pump rate. Plan and Disposition:: Patient was discharged without incident.
== END | disposition home or self-care (01) ==
PROVIDERS: PCP Family Medicine; Visit Provider Nurse Anesthetist, Certified Registered
DX: M51.16 Intervertebral disc disorders with radiculopathy, lumbar region (principal); M96.1 Postlaminectomy syndrome, not elsewhere classified; Z97.8 Presence of other specified devices
CPT/HCPCS: 62368; 99213; G0463

== ENCOUNTER 2023-09-04 11:02 | Day surgery (SDC) | payer MEDICARE, SELFPAY ==
[2023-09-04 11:25] VITALS: BP 165/79; PULSE 77; RESP 16; TEMP 36.8; O2SAT 98; BMI 28.7
[2023-09-04 11:36] VITALS: BP 144/81; PULSE 86; O2SAT 96
[2023-09-04 11:40] VITALS: BP 144/81; PULSE 84; O2SAT 96
[2023-09-04 11:48] VITALS: BP 139/64; PULSE 66; RESP 16; O2SAT 98
--- NOTE | 2023-09-04 12:29 | EXP.PAIN.PRO ---
Procedure Date: 09/04/23 Time: 12:00 Anesthesiologist:: Delio Burgess CRNA Complications:: None Pre-procedure Diagnosis:: Degenerative disc disease lumbar spine multilevels. Lumbar radiculopathy. Lumbar postlaminectomy syndrome. Post-procedure Diagnosis:: Same. Indications for Procedure:: This patient is a very pleasant 68-year-old male comes our clinic today for intrathecal pain pump interrogation and refill. He is currently being managed with morphine sulfate 1 mg/mL rate of 0.13 to 1 mg/day. Patient requesting increase in rate. He is having some increased low back pain with ambulation. Otherwise, he does not report any side effects or complications. Will increase his rate by 20% today. Procedure Details:: Details of the procedure explained to the patient. The patient taken procedure room placed in the sitting position. The area over the pump was cleansed using chlorhexidine's cleansing solution. The pump was interrogated. The pump was accessed with ease using a 22-gauge inch and half needle. 5 mL of solution was drawn discarded appropriately. The pump was then filled with 20 cc of a solution containing morphine sulfate 1 mg/mL. The rate will be increased to 0.1587 mg/day. Patient tolerated procedure without difficulty. There are no complications. Plan and Disposition:: Patient was discharged without incident.
== END 2023-09-04 11:48 | disposition home or self-care (01) ==
PROVIDERS: PCP Family Medicine; Visit Provider Nurse Anesthetist, Certified Registered
DX: M51.16 Intervertebral disc disorders with radiculopathy, lumbar region (principal); M96.1 Postlaminectomy syndrome, not elsewhere classified; Z97.8 Presence of other specified devices
CPT/HCPCS: 95991

== ENCOUNTER 2023-12-24 18:28 | Outpatient (CLI) | payer MEDICARE, SELFPAY ==
[2023-12-24 18:24] LABS: Basophils # 0.1 K/mm3 (0-0.2); Eosinophils # 0.2 K/mm3 (0.0-0.4); Eosinophils % 3.1 % (0.1-12.0); Hematocrit 40.5 % (42.0-52.0); Hemoglobin 13.3 g/dL (14.1-18.0); Lymphocytes % 40.8 % (10-50); Mean Corpuscular HGB Conc 32.9 g/dL (31.8-35.4); Mean Corpuscular Hemoglobin 30.1 pg (27.0-31.2); Mean Corpuscular Volume 91.6 fl (80-94); Mean Platelet Volume 9.2 fl (7.4-10.4); Monocytes # 0.5 K/mm3 (0.1-1.0); Neutrophils # 3.6 K/mm3 (1.8-7.8); Platelet Count 223 K/mm3 (142-424); Red Blood Count 4.42 M/mm3 (4.60-6.20); Red Cell Distribution Width 13.1 % (11.5-17.5); White Blood Count 7.4 K/mm3 (4.8-10.8)
[2023-12-24 18:59] LABS: Alanine Aminotransferase 58 U/L (12-78); Albumin Level 4.6 g/dl (3.5-5.0); Albumin/Globulin Ratio 1.6 (1.1-1.8); Alkaline Phosphatase 61 U/L (38-126); Anion Gap 10.1 mEq/L (5-15); Aspartate Amino Transferase 42 U/L (17-59); Bilirubin,Total 0.3 mg/dl (0.2-1.3); Blood Urea Nitrogen 26 mg/dl (9-20); Calcium 9.9 mg/dl (8.4-10.2); Carbon Dioxide 30 mmol/L (22.0-30.0); Chloride 104 mmol/L (98-107); Chol/HDL Ratio 3.5 (1-3.5); Cholesterol 182 mg/dl (140-200); Estimated Glomerular Filt Rate 84 ml/min (>60); GFR (African American) 102 ML/MIN (>60); Globulin 2.8 g/dL (1.3-3.2); Glucose 98 mg/dl (74-100); HDL Cholesterol 52 mg/dl (40-60); Potassium 4.1 mmoL/L (3.5-5.1); Sodium 140 mmol/L (136-145); Total Protein,Serum 7.4 g/dl (6.3-8.2); Triglycerides 182 mg/dl (30-150); VLDL Cholesterol 36 mg/dL (0-40)
[2023-12-24 19:11] LABS: Direct LDL Cholesterol 99.36 mg/dL (100-129)
[2023-12-24 19:30] LABS: Prostate Specific Ag Screen 0.4 ng/ml (0.0-4.0); Thyroid Stimulating Hormone 1.64 uIU/mL (0.465-4.68)
== END 2023-12-24 23:59 ==
LOC: LAB.DROPOF 18:28
PROVIDERS: PCP Family Medicine; Visit Provider Family Medicine
DX: E07.9 Disorder of thyroid, unspecified (principal); M54.50 Low back pain, unspecified; Z12.5 Encounter for screening for malignant neoplasm of prostate; E78.5 Hyperlipidemia, unspecified
CPT/HCPCS: 80053; 80061; 84443; 85025; G0103

== ENCOUNTER 2024-07-25 13:59 | Day surgery (SDC) | payer MEDICARE, SELFPAY ==
[2024-07-25 14:21] VITALS: BP 126/76; PULSE 73; RESP 16; TEMP 36.3; O2SAT 96; BMI 27.5
[2024-07-25 14:34] VITALS: BP 137/85; PULSE 85; RESP 18; O2SAT 97
[2024-07-25 14:36] VITALS: BP 137/85; PULSE 85; RESP 18; O2SAT 97
--- NOTE | 2024-07-25 14:44 | EXP.PAIN.PRO ---
Procedure Date: 07/25/24 Time: 14:35 Anesthesiologist:: Delio Burgess CRNA Complications:: None Pre-procedure Diagnosis:: Degenerative disc lumbar spine multilevels. Lumbar radiculopathy. Lumbar postlaminectomy syndrome. Post-procedure Diagnosis:: Same. Indications for Procedure:: Patient is a pleasant 69-year-old male who comes our clinic today for intrathecal pain pump interrogation and refill. Patient currently being managed with morphine sulfate 2 mg/mL at a rate of 0.1748 mg/day. Patient doing very well with his current settings. He is not requesting any changes. He does not report any side effects or complications. Patient is awake alert [place] x 3. In no acute distress. Flexion-extension lumbar spine somewhat guarded secondary to pain. Deep tendon reflexes upper lower extremities normal. Motor strength upper lower extremities normal. There is no gross sensory deficit. Gait is normal. Procedure Details:: Details of the procedure explained to the patient. The patient taken procedure room placed in sitting position. The over the pump was cleansed and chlorhexidine as a cleansing solution. The pump was interrogated. The pump was accessed with ease using a 22-gauge inch and half needle. 14 mL of solution was withdrawn discarded appropriately. The pump was then filled with 20 cc of solution containing morphine sulfate 2 mg/mL. No change in pump rate. Patient tolerated procedure without difficulty. There are no complications. Plan and Disposition:: Patient was discharged without incident.
[2024-07-25 14:51] VITALS: BP 123/64; PULSE 78; RESP 16; O2SAT 96
== END 2024-07-25 14:51 | disposition home or self-care (01) ==
PROVIDERS: PCP Family Medicine; Visit Provider Nurse Anesthetist, Certified Registered
DX: M51.16 Intervertebral disc disorders with radiculopathy, lumbar region (principal); M96.1 Postlaminectomy syndrome, not elsewhere classified
CPT/HCPCS: 95991

== ENCOUNTER 2024-07-28 11:54 | Outpatient (CLI) | payer MEDICARE, SELFPAY ==
[2024-07-30 10:16] LABS: Testosterone,Total 73 ng/dL (264-916)
== END 2024-07-28 23:59 | disposition home or self-care (01) ==
LOC: LAB.DROPOF 07-29 11:54
PROVIDERS: PCP Family Medicine; Visit Provider Family Medicine
DX: E34.9 Endocrine disorder, unspecified (principal)
CPT/HCPCS: 84403

== ENCOUNTER 2024-09-03 08:21 | Day surgery (SDC) | payer MEDICARE, SELFPAY ==
[2024-08-29 15:15] VITALS: BMI 27.8
[2024-09-03 09:48] VITALS: BP 137/75; PULSE 58; RESP 18; TEMP 36.2; O2SAT 99
[2024-09-03] MEDS: LACTATED RINGERS 1000ML 1,000 ML 25 ML IV (10:02)
--- NOTE | 2024-09-03 10:34 | EXP.HP ---
History of Present Illness *Admission Date: 09/03/24 *Reason for visit:: Screening *History of present illness: Mr. Lamar is a 69-year-old gentleman who is here for screening colonoscopy. His last colonoscopy was possibly 20 years ago. The examination is deemed medically necessary for screening colonoscopy. The patient has been seen, interviewed and examined prior to the procedure by both myself and the anesthesia provider. [facility] Disclaimer: The information contained in this section may have been updated after the patient was seen, as this information can be updated by other users. Medical History Carotid artery disease HLD (hyperlipidemia) Stroke HTN (hypertension) Surgical History History of lumbar fusion History of laminectomy H/O carotid endarterectomy Family History No significant family history Social History (Updated 09/03/24 @ 09:55 by Izabella Myers RN) Smoking Status: Former smoker alcohol intake: never substance use type: denies use current occupational status: retired Travel in the last 8 weeks: None household members: significant other housing: house caffeine: Yes Other Medical History Have you received the Flu Vaccine for this season: No Have you received the Pneumonia Vaccine: Yes Review of Systems Review of Systems Review of systems (narrative): Negative *Cardiovascular Comments: Negative *Gastrointestinal Comments: Negative *Genitourinary Comments: Negative *Musculoskeletal Comments: Negative *Neurologic Comments: Negative Meds Home Medications and Allergies Home Medications ?Medication ?Instructions ?Recorded ?Confirmed ?Type multivitamin 1 cap PO DAILY VITAMIN 04/02/20 08/29/24 History morphine (PF) 1 mg/mL injection 1 mg epidural CONT Pain 05/25/23 09/03/24 History solution aspirin 81 mg tablet,delayed 81 mg PO DAILY Blood thinner #100 12/24/23 08/29/24 Rx release (Adult Low Dose Aspirin) tabs atorvastatin 80 mg tablet (Lipitor) 80 mg PO DAILY Cholesterol #90 tabs 12/24/23 08/29/24 Rx losartan 100 1 tab PO DAILY BLOOD PRESSURE #90 12/24/23 09/03/24 Rx mg-hydrochlorothiazide 12.5 mg tabs tablet (Hyzaar) sertraline 50 mg tablet 50 mg PO DAILY 90 days #90 tabs 05/19/24 09/03/24 Rx zolpidem 10 mg tablet (Ambien) 10 mg PO HS PRN sleep #30 tabs 07/03/24 09/03/24 Rx testosterone (AndroGel) 2 pump topical DAILY #75 grams 08/01/24 09/03/24 Rx peg 3350-electrolytes 236 240 ml PO Q10M colonscopy #4,000 mL 08/22/24 08/29/24 Rx gram-22.74 gram-6.74 gram-5.86 gram solution (Golytely) testosterone 1 % (25 mg/2.5 gram) 25 mg topical DAILY 08/29/24 09/03/24 History transdermal gel packet (AndroGel) New Prescriptions to Start Prescriptions: Allergies Allergy/AdvReac Type Severity Reaction Status Date / Time Sulfa (Sulfonamide Allergy Severe Rash Verified 09/03/24 09:47 Antibiotics) Exam Data for Last 24 hours Vital signs and Labs for Last 24 Hours: Temp Pulse Resp BP Pulse Ox O2 Del Method 97.1 F L 58 L 18 137/75 99 Room Air 09/03/24 09:48 09/03/24 09:48 09/03/24 09:48 09/03/24 09:48 09/03/24 09:48 09/03/24 09:48 *Routine HEENT Exam Head: Present normocephalic Eye: Present EOMI and PERRL ENT: Present mucous membranes moist *Routine Neck Exam Neck: Present supple *Routine Respiratory Exam Respiratory: Present CTA bilaterally *Routine Cardiovascular Exam Cardiovascular: Present RRR *Routine Abdominal Exam Abdominal: Present soft and normoactive bowel sounds; Absent tenderness *Routine Rectal Exam Rectal:: deferred *Routine Genitalia Exam Genitalia:: deferred *Routine Extremities Exam Extremities: Absent cyanosis, clubbing or edema *Routine Skin Exam Skin: Present warm; Absent rash *Routine Neurological Exam Neurological: Present alert and oriented X3 Assessment and Plan *Assessment and plan (1) Screening for colon cancer: Status: Acute Category: Medical Code(s): Z12.11 - Encounter for screening for malignant neoplasm of colon (2) Prolapsed internal hemorrhoids: Status: Acute Category: Medical Code(s): K64.8 - Other hemorrhoids (3) Bleeding internal hemorrhoids: Status: Acute Category: Medical Code(s): K64.8 - Other hemorrhoids Plan A/P: 1. Screening for colon cancer is the preprocedural diagnosis. Incidentally, the patient does report frequent prolapsing and bleeding internal hemorrhoids for many years. The patient will be anesthetized/sedated using MAC sedation. The patient has been seen and examined. Cardiac and lung assessment prior to the examination is stable. Proceed with planned screening colonoscopy
[2024-09-03 10:46] VITALS: O2SAT 100
--- NOTE | 2024-09-03 10:46 | P.PCN_ITS ---
[facility] Procedure Note Date: 09/03/24 Time: 11:01 Procedure Note:: Colonoscopy Procedure Report: Colonoscopy with cold snare polypectomy and hemorrhoid band ligation Endoscopist: Magdi León II, MD Referring physician: Nikos Parada MD Date of Procedure: September 03, 2024 Equipment: Olympus 190 variable stiffness pediatric colonoscope Sedation: MAC sedation Indication: Mr. Lamar is a 69-year-old gentleman who is here for screening colonoscopy. His last colonoscopy was approximately 20 years ago. He reports no abdominal pain, weight loss, change in his bowel habits or family history of colon cancer. He does get frequent hemorrhoidal prolapse and intermittent hemorrhoidal bleeding. He states that the hemorrhoidal bleeding occurs once every month to every 6 months. The patient's father had prostate cancer. Procedure: Prior to the procedure, a history and physical exam was performed, and patient's medications and allergies were reviewed. The risks, benefits and alternatives of the sedation and procedure were discussed with the patient. All questions were answered and informed consent was obtained. The patient was brought to the procedure room. Patient identification and proposed procedure were verified by the physician and the nurse. The patient was placed in a left lateral decubitus position and the scope was passed under direct vision. Throughout the procedure, the patient's blood pressure, pulse, and oxygen saturations were monitored continuously. The colonoscopy was accomplished without difficulty. The patient tolerated the procedure well. Findings: On digital rectal examination there was normal rectal tone. There were no external hemorrhoids. The prostate was 1-2+, smooth, soft, symmetric without nodules. The colonoscope was introduced through the anal canal to the rectum and advanced to the cecum. The ileocecal valve and appendiceal orifice were identified. The scope was advanced a short distance into the ileum which appeared grossly normal. The scope was then withdrawn into the colon. The cecum, ascending and transverse colon and mucosa were grossly normal. There were scattered diverticuli throughout the descending and sigmoid colon (LEFT colon). There was a 4 to 5 mm polyp in the rectosigmoid removed via cold snare polype ctomy. The rectum itself was normal. Upon retroflexion within the rectum there were grade 2-3 internal hemorrhoids. The hemorrhoids were banded using 3 bands on 3 columns of hemorrhoids with excellent ligation effect. The preparation was good throughout with Winslow Preparation Score of 8 out of 9. The cecal time was 12 minutes. Impression: 1. Diminutive rectosigmoid polyp (4 to 5 mm) 2. Left-sided diverticulosis 3. Grade 2-3 internal hemorrhoids status post band ligation x 3 Plan: I will follow-up the polyp histology and recommend repeat surveillance colonoscopy again in 7 to 10 years based upon the pathology. I would encourage psyllium bulking fiber supplementation on a long-term daily maintenance basis.
[2024-09-03 11:12] VITALS: BP 110/68; PULSE 66; RESP 17; TEMP 36.2; O2SAT 98
[2024-09-03 11:22] VITALS: BP 115/68; PULSE 71; RESP 17; O2SAT 98
[2024-09-03 11:32] VITALS: BP 122/72; PULSE 70; RESP 17; O2SAT 98
[2024-09-03 11:42] VITALS: BP 131/76; PULSE 69; RESP 17; O2SAT 99
== END 2024-09-03 11:53 | disposition home or self-care (01) ==
PROVIDERS: PCP Family Medicine; Visit Provider Internal Medicine Gastroenterology
PROC: (CPT 45385; principal; 2024-09-03 10:00)
DX: K64.8 Other hemorrhoids (principal); Z12.11 Encounter for screening for malignant neoplasm of colon; Z80.42 Family history of malignant neoplasm of prostate; K63.5 Polyp of colon; K57.30 Diverticulosis of large intestine without perforation or abscess without bleeding
CPT/HCPCS: 45385; 45398; 88305; C1889; J7120

== ENCOUNTER 2024-11-28 09:56 | Day surgery (SDC) | payer MEDICARE, SELFPAY ==
--- NOTE | 2024-11-28 09:58 | P.PCN_ITS ---
Procedure Date: 11/28/24 Time: 10:43 Anesthesiologist:: Marcia Guerrero APRN Complications:: None Pre-procedure Diagnosis:: Degenerative disc disease of lumbar spine with lumbar radiculopathy symptoms Post-procedure Diagnosis:: Degenerative disc disease of lumbar spine with lumbar radiculopathy symptoms Indications for Procedure:: Patient is a pleasant 69-year-old male who presents today for intrathecal refill and reprogram. Today he rates his pain at a 3 out of 10. He denies any new in jury from he states he is doing well with his current dosage. Patient is currently managed with morphine 2 mg/mL with a daily dose of 0.1748 mg/day. He denies any side effects. His Hernan has been reviewed and is appropriate. Physical Exam: General: Alert and oriented x3, no acute distress, pleasant and cooperative Lungs: Respirations even and unlabored, symmetrical chest expansion Eyes: PERRL Musculoskeletal: Flexion and extension of lumbar [spine] somewhat guarded secondary to pain, [antalgic gait noted] Neurological: Speech clear, no gross sensory deficit Procedure Details:: Informed consent was obtained and the risk and benefits of the procedure were explained to the patient. The patient had noninvasive monitoring placed including noninvasive blood pressure cuff and pulse oximeter. Patient's pump was interrogated. The area over the pump was cleansed with chlorhexidine as a cleansing solution. In sterile fashion the pump was accessed with a 22-gauge needle. Approximately 8.8 mls of the pump solution was removed and discarded appropriately. The pump was then refilled with 20 mL's of morphine 2 mg/mL. The needle was withdrawn and a bandage was placed over the puncture site. The infusion rate was reprogrammed and continued at its current dosage. The patient tolerated well with no complication. Plan and Disposition:: Patient tolerated the procedure well with no complications and was discharged neurologically intact. Patient will return to clinic on or before their next intrathecal refill date. We will see the patient back in the clinic at the next intrathecal refill. Patient has been instructed to contact the clinic with any concerns before the next appointment. Dr. Jackson has reviewed this note and agrees with this plan of care. This note was dictated using voice recognition software and make contain errors or omissions. -- It Is medically necessary for this patient to continue to have their intrathecal pump refilled at regular intervals. This patient had an intrathecal pain pump implanted after meeting criteria of chronic intractable pain for greater than 3 months and failing conservative treatments. Patient has committed and been compliant to the treatment plan and all planned follow up care. Since implantation of the intrathecal pain pump, the patient has had decreased pain and been more functional. Oral medications have been reduced including intake of oral opioids. Patient continues to do well with intrathecal therapy with decrease in pain symptoms and increase in functional status. Stopping intrathecal medications can lead to life threatening withdrawal, seizures, cardiac arrest, severe pain, and possible . Pumps that are not refilled at regular intervals can be damages and cause and need for replacement. We continually titrate dose and concentration to optimize pain relief and function. We are limited in concentration for certain drugs to safely deliver medications through the pump and stay within the recommendations from the Polyanalgesic Consensus Committee Guidelines. Depending on dose and concentration these pumps may need to be refilled sooner than 3 months as we titrate. A UDS is needed to verify patient's compliance with our office pain contract. This is ordered based off specific treatments related to chronic pain with the potential to abuse certain medications.
[2024-11-28 10:08] VITALS: BP 122/72; PULSE 56; RESP 16; TEMP 36.6; O2SAT 100; BMI 26.9
[2024-11-28 10:36] VITALS: BP 138/82; PULSE 69; RESP 18; O2SAT 98
[2024-11-28 10:37] VITALS: BP 138/82; PULSE 69; RESP 18; O2SAT 98
[2024-11-28 11:05] VITALS: BP 122/76; PULSE 57; RESP 16; O2SAT 99
== END 2024-11-28 11:05 | disposition home or self-care (01) ==
PROVIDERS: PCP Family Medicine; Visit Provider Nurse Practitioner Family
DX: M51.16 Intervertebral disc disorders with radiculopathy, lumbar region (principal)
CPT/HCPCS: 62370

== ENCOUNTER 2025-01-05 13:50 | Outpatient (CLI) | payer MEDICARE, SELFPAY ==
[2025-01-05 18:14] LABS: Basophils % 0.6 % (0.1-2.0); Eosinophils # 0.2 K/mm3 (0.0-0.4); Eosinophils % 2.5 % (0.1-12.0); Hematocrit 38.8 % (42.0-52.0); Hemoglobin 13.1 g/dL (14.1-18.0); Lymphocytes # 2.4 K/mm3 (0.7-4.5); Lymphocytes % 36.4 % (10-50); Mean Corpuscular HGB Conc 33.8 g/dL (31.8-35.4); Mean Corpuscular Hemoglobin 28.6 pg (27.0-31.2); Mean Corpuscular Volume 84.7 fl (80-94); Monocytes # 0.8 K/mm3 (0.1-1.0); Monocytes % 11.8 % (1.7-9.3); Neutrophils # 3.3 K/mm3 (1.8-7.8); Neutrophils % 48.6 % (37.0-80.0); Nucleated Red Blood Cells # 0 10^3/uL; Nucleated Red Blood Cells % 0 %; Platelet Count 209 K/mm3 (142-424); Red Blood Count 4.58 M/mm3 (4.60-6.20); Red Cell Distribution Width 12.6 % (11.5-17.5); Red Cell Distribution Width-SD 38.8 fL; White Blood Count 6.7 K/mm3 (4.8-10.8)
[2025-01-05 19:55] LABS: Chol/HDL Ratio 3.1 (1-3.5); Cholesterol 114 mg/dl (140-200); HDL Cholesterol 37 mg/dl (40-60); Triglycerides 140 mg/dl (30-150); VLDL Cholesterol 28 mg/dL (0-40)
[2025-01-05 20:06] LABS: Direct LDL Cholesterol 45.42 mg/dL (100-129)
[2025-01-05 20:25] LABS: Prostate Specific Ag Screen 0.4 ng/ml (0.0-4.0)
--- OUTSIDE RECORDS SUMMARY | 2025-01-06 14:41 | XMS_ITS | Data Portability ---
Author Organization [facility] ADMIN Address [address] [place] [id number] Assessment No assessment recorded. Plan of Treatment Reminders Order Date Submit Date Provider Last Modified By Organization Details Last Modified Time Details Appointments None record ed. Lab None record ed. Referral None record ed. Procedures None record ed. Surgeries None record ed. Imaging None record ed. Medication Orders None record ed. Patient TargetsNo targets recorded. Patient InstructionsNo instructions recorded. Reason for Referral None Reported. Results Created Date Observation Date Name Description Value Unit Range Abnormal Flag Note LastModifiedBy Organization Detail LastModifiedTime 06/25/2006/25/2023 audio gram No observ ation record ed. [email or web address] Not Available 2022 14:27:09 Result Notes None recorded. Problems Name Problem SNOMED Code Status Onset Date Resolution Date Notes Provider Name and Address Organization Details Recorded Time Sensorineural hearing loss [id number] Active 2022 LEWIS CHAPMAN, AUD [address] [facility], [place], [address] , [facility] & [place] 14:25:19 Problem Notes None recorded. Procedures Surgical History None recorded. Imaging Results Imaging Date Name Status LastModified by Organiz ation Details LastModified Time 06/25/2023 audiogram completed [email or web address] Information no t available 06/25/2023 14:27:09 Procedure Notes None recorded. Medical Equipment None Reported. Medications Name Sig Start Date Stop Date Status Note LastModified by Organization Details LastModified Time atorvastatin 80 mg tablet active Not Available Not Available Not Available clindamycin HCl 300 mg capsule active Not Available Not Available N ot Available hydrochlorothiazide 25 mg tablet active Not Available Not Available Not Available zolpidem 10 mg tablet active Not Available Not Available Not Available sertraline 50 mg tablet active Not Available Not Available Not Available amoxicillin 500 mg-potassium clavulanate 125 mg tablet active Not Available Not Available Not Available losartan 100 mg-hydrochlorothiaz annette 12.5 mg tablet active Not Available Not Sun ilable Not Available Gavilyte-C 240 gram-22.72 gram-6.72 gram-5.84 gram oral solution active Not Available Not Sun ilable Not Available Vitals None Recorded Social History None recorded. Functional Status None recorded. Mental Status None recorded. Family History Nothing Reported. Medical History No medical history recorded. Past Encounters Encounter ID Performer Location Encounter Start Date Encounter Closed Date Diagnosis/Indication Diagnosis SNOMED-CT Code Diagnosis ICD10 Code Diagnosis Note [id number] [facility] [address] [place] [address] [place] [address] 8 06/25/2023 13:51:27 06/25/2023 14:24:58 Sensorineural hearing loss 43131451 H90.3 [id number] [facility] [address] [place] [address] [place] [address] 8 08/15/2023 10:49:22 08/15/2023 11:52:36 Sensorineural hearing loss 70265692 H90.3 [id number] SHAJI SALINAS [facility] [place] [address] [place] [address] 8 08/28/2023 09:20:18 08/28/2023 09:32:59 Sensorineural hearing loss [id number] H90.3 Health Concerns Section Related Observation LastModified by Organization Detai ls LastModified Time None Recorded Concern Status LastModified by Organization Details LastModified Time None Recorded Advance Directives Directive None Recorded Payers Encounter Date Sequence Insurance Name Policy Number Policy David Covered Member ID David Member ID Guarantor Name 06/25/2023 1 [place]AC[place] [id number] Nikos Lamar [id number] Nikos Lamar 08/15/2023 1 [place] [id number] Nikos Lamar [id number] Nikos Lamar 08/28/2023 1 [place]ENG BCBS OF [facility] PLUS (MEDICARE REPLACEMENT HMO) [id number] Nikos Lamar [id number] Nikos Lamar Notes Date Note Type Note Provider Name and Address Organization Details Recorded Time 06/25/2023 text/html Mr. Lamar was seen today for an audiologic evaluation due to long-standing hearing loss bilaterally. He reports ongoing ringing tinnitus bilaterally as well. He denies ear pain, drainage, aural fullness/pressure, and excessive noise exposure. Otoscopic inspection was unremarkable bilaterally. Audiometric testing revealed a mild, sloping to moderate, low through high freq SNHL with good word rec scores bilaterally. 1-Discussed findings with Mr. Lamar. 2-Rec hearing aids bilaterally; he will pursue through [facility]. 3-F/u hearing testing annually to monitor. LEWIS CHAPMAN, SHAJI [address] , [place], [address], [facility] - [facility] & [place] 06/25/2023 14:27:13 08/15/2023 text/html Mr. Lamar was seen today for a hearing aid fitting via [facility]. SHAJI ASLINAS [address] , [place], [address], [facility] - [facility] & [place] 08/15/2023 11:58:09 08/28/2023 text/html Patient was seen today for a hearing aid service. Cleaned and adjusted hearing aids this date. LEWIS CHAPMAN, SHAJI [address] [facility],[address], [place], [address], [place] - [facility] & [place] 08/28/2023 10:12:08
[2025-01-07 08:42] LABS: Testosterone,Total 368 ng/dL (264-916)
== END 2025-01-05 23:59 | disposition home or self-care (01) ==
LOC: LAB.DROPOF 01-06 14:39
PROVIDERS: PCP Family Medicine; Visit Provider Family Medicine
DX: E34.9 Endocrine disorder, unspecified (principal)
CPT/HCPCS: 80061; 84403; 85025; G0103

== ENCOUNTER → 2025-02-27 10:53 | Day surgery (SDC) | payer MEDICARE, SELFPAY ==
--- NOTE | 2025-02-27 11:21 | EXP.PAIN.PRO ---
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 He denies any new overall changes from his last appointment. Today he does state that he is not interested in doing his routine urine drug screen. Patient states that he does not see the need to continue to do these and has no interest in doing any in the future. Patient is currently managed with intrathecal Morphine 2 mg/mL with a daily dose of 0.1748 mg/day. He denies any side effects. Physical Exam: General: Alert and oriented x3, no acute distress, pleasant and cooperative Lungs: Respirations even and unlabored, symmetrical chest expansion Eyes: PERRL Musculoskeletal: Flexion and extension of lumbar [spine] somewhat guarded secondary to pain, [antalgic gait noted] Neurological: Speech clear, no gross sensory deficit Procedure Details:: Informed consent was obtained and the risk and benefits of the procedure were explained to the patient. Patient did have noninvasive monitoring was placed including noninvasive blood pressure cuff and pulse oximeter. Patient's pump was interrogated and was reprogrammed an decreased 50%. The patient tolerated the procedure well with no complications. Plan and Disposition:: He was counseled that this is part of our requirement having a intrathecal pump with opioids regarding the urine drug screens and that we do need these to remain compliant. We did review over explant and he did state he wanted to proceed forward with this option. Patient was counseled that we will plan on seeing him back in 2 weeks for an additional decrease down to minimal flow. Patient will have his pump explanted in future. We will follow-up with us at his upcoming appointment. Patient acknowledges understanding agrees with this plan of care. We will also disable his PTM device today. Patient will return to clinic in 2 weeks for reevaluation of symptoms and plan of care. Patient tolerated the procedure well with no complications and was discharged neurologically intact. Patient will return to clinic on or before their next intrathecal refill date. We will see the patient back in the clinic at the next intrathecal refill. Patient has been instructed to contact the clinic with any concerns before the next appointment. Dr. Jackson has reviewed this note and agrees with this plan of care. This note was dictated using voice recognition software and make contain errors or omissions. -- It Is medically necessary for this patient to continue to have their intrathecal pump refilled at regular intervals. This patient had an intrathecal pain pump implanted after meeting criteria of chronic intractable pain for greater than 3 months and failing conservative treatments. Patient has committed and been compliant to the treatment plan and all planned follow up care. Since implantation of the intrathecal pain pump, the patient has had decreased pain and been more functional. Oral medications have been reduced including intake of oral opioids. Patient continues to do well with intrathecal therapy with decrease in pain symptoms and increase in functional status. Stopping intrathecal medications can lead to life threatening withdrawal, seizures, cardiac arrest, severe pain, and possible . Pumps that are not refilled at regular intervals can be damages and cause and need for replacement. We continually titrate dose and concentration to optimize pain relief and function. We are limited in concentration for certain drugs to safely deliver medications through the pump and stay within the recommendations from the Polyanalgesic Consensus Committee Guidelines. Depending on dose and concentration these pumps may need to be refilled sooner than 3 months as we titrate. A UDS is needed to verify patient's compliance with our office pain contract. This is ordered based off specific treatments related to chronic pain with the potential to abuse certain medications.
[2025-02-27 11:30] VITALS: BP 120/69; PULSE 54; RESP 16; O2SAT 97; BMI 25.9
--- NOTE | 2025-02-27 14:15 | PC.NURSE ---
1125- pt here for PPR as scheduled, pt was asked for a urine drug screen, pt states he is refusing to urine drug screen. Pt reports he has never had a positive drug screen, did not see why it was necessary to continue to have drug screens. Notified provider olga jones of pt stating to staff that he is refusing his random drug screen. olga Jones states to make sure pt is aware that we have to do drug screens on patients r/t FDA requirements to maintain compliance for our clinic. 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 Pt stated the answer is no, i would rather have the pump taken out than have to get drug tests. . Pt reported that he does not want the government to be able to mandate him to get drug tested at 70 years old r/t to the fact that he has a pain pump for his pain. Notified provider olga jones and [place] of conversation with patient. [place] to room to speak with pt, I accompanied Dr. Jackson to pt room. Pt stated to Dr. Jackson that he was not agreeing to having a drug screen, states he would rather have pump taken out than have to do drug screens. Dr. Jackson notified pt that we have drug screen requirements to keep in compliance, pt stated he understood why is was needed but he was not going to do one. Pt reports that he does not feel like the pump is helping him with pain anyways. Pt states he was going to bring that up at his appt today. Dr. Jackson discussed POC with pt, states we will decrease pts pump by 50% today, r/t does not want pt to go through withdraws when having pump explanted. States we will see pt back in 2 weeks to have pump decreased the rest of the way and then the plan for explant of pump can be made. pt agreeable to this POC. Pump decreased per Dr Jackson request, pt is agreeance. Pt given a follow up appt in 2 weeks. Stated to pt to contact our office for any needs that he may have before scheduled appt, pt verbalized agreeance.
== END | disposition home or self-care (01) ==
PROVIDERS: PCP Family Medicine; Visit Provider Nurse Practitioner Family
DX: M51.369 Other intervertebral disc degeneration, lumbar region without mention of lumbar back pain or lower extremity pain (principal); M96.1 Postlaminectomy syndrome, not elsewhere classified
CPT/HCPCS: 62368; 99212; G0463

== ENCOUNTER 2025-03-13 10:17 | Day surgery (SDC) | payer MEDICARE, SELFPAY ==
--- NOTE | 2025-03-13 10:19 | P.HP_ITS ---
History of Present Illness *Admission Date: 03/13/25 *Reason for visit:: Intrathecal refills; DDD *History of present illness: Same [facility] Disclaimer: The information contained in this section may have been updated after the patient was seen, as this information can be updated by other users. Medical History Carotid artery disease HLD (hyperlipidemia) Stroke HTN (hypertension) Surgical History History of lumbar fusion History of laminectomy H/O carotid endarterectomy Family History Other No significant family history Social History Smoking Status: Former smoker alcohol intake: never substance use type: denies use current occupational status: other Travel in the last 8 weeks?: None household members: significant other housing: house caffeine: Yes Have you lived/traveled outside US in past 30 days?: No Contact w/someone who lives/traveled outside US past 30 days?: No Exposure to someone with infectious disease in past 14 days?: No Do you have a fever (greater than 100.4 F or 38 C)?: No Have you tested positive for COVID-19?: No Exposed to someone with COVID-19 in past 14 days?: No Do you have a sore throat?: No Do you have a cough?: No Do you have any weakness?: No Do you have any diarrhea?: No Are you experiencing any unusual bleeding?: No Do you have any muscle aches/pain?: No Do you have any abdominal pain?: No Are you experiencing loss of taste or smell?: No Other Medical History Have you received the Flu Vaccine for this season: No Have you received the Pneumonia Vaccine: Yes Review of Systems Review of Systems Review of systems:: pertinent systems reviewed and negative unless documented below Review of systems (narrative): Review of Systems: General: No recent weight changes, no fever, no sleep disturbances Respiratory: No cough, no shortness of air, no recurring pulmonary infections Cardiovascular/peripheral vascular: No chest pain, no palpitations, no edema, no shortness of breath Gastrointestinal: No new onset incontinence, normal bowel movements reported Genitourinary: No new onset incontinence Musculoskeletal: Chronic back pain Psychiatric: [Normal mood/affect] Neurological: [Denies weakness in extremities], [denies balance issues] Meds Home Medications and Allergies Home Medications ?Medication ?Instructions ?Recorded ?Confirmed ?Type multivitamin 1 cap PO DAILY VITAMIN 04/0202/27/25 History morphine (PF) 1 mg/mL injection 1 mg epidural CONT Dagoberto n 05/25/23 02/27/25 History solution aspirin 81 mg tablet,delayed 81 mg PO DAILY Blood thin ner #100 12/24/23 02/27/25 Rx release (Adult Low Dose Aspirin) tabs sertraline 50 mg tablet 50 mg PO DAILY 90 days #90 t abs 05/19/24 02/27/25 Rx peg 3350-electrolytes 236 240 ml PO Q10M colonscopy #4 ,000 mL 08/22/24 02/27/25 Rx gram-22.74 gram-6.74 gram-5.86 gram solution (Golytely) testosterone 1 % (25 mg/2.5 gram) 25 mg topical DAILY 08/29/24 02/27/25 History transdermal gel packet (AndroGel) testosterone (AndroGel) 2 pump topical DAILY #75 gra ms 10/29/24 02/27/25 Rx atorvastatin 80 mg tablet (Lipitor) 80 mg PO DAILY Cho lesterol #90 tabs 12/23/24 02/27/25 Rx losartan 100 1 tab PO DAILY BLOOD PRESSUR E #90 12/23/24 02/27/25 Rx mg-hydrochlorothiazide 12.5 mg tabs tablet (Hyzaar) zolpidem 10 mg tablet (Ambien) 10 mg PO HS PRN sleep # 30 tabs 01/21/25 02/27/25 Rx New Prescriptions to Start Prescriptions: Allergies Allergy/AdvReac Type Severity Reaction Status Date / Time Sulfa (Sulfonamide Allergy Severe Rash Verified 01/05/25 13:02 Antibiotics) Exam Constitutional Constitutional: no acute distress *Routine HEENT Exam Head: Present normocephalic and atraumatic Eye: Present PERRL ENT: Present mucous membranes moist *Routine Neck Exam Neck: Present supple *Routine Respiratory Exam Respiratory: Present CTA bilaterally *Routine Cardiovascular Exam Cardiovascular: Present RRR *Routine Abdominal Exam Abdominal: Present soft *Routine Rectal Exam Rectal:: deferred *Routine Genitalia Exam Genitalia:: deferred Routine Back/Spine/Pelvis Exam Back/Spine: Present pain with flexion *Routine Skin Exam Skin: Present intact and warm *Routine Neurological Exam Neurological: Present alert and oriented X3 Routine Psychiatric Exam Psychiatric: Present normal affect and normal thought process Assessment and Plan *Assessment and plan (1) Degenerative disc disease, lumbar: Status: Acute Category: Medical Code(s): M51.369 - Other intervertebral disc degeneration, lumbar region without mention of lumbar back pain or lower extremity pain Plan Patient has been instructed to contact the clinic with any concerns before the next appointment. Dr. Jackson has reviewed this note and agrees with this plan of care. This note was dictated using voice recognition software and make contain errors or omissions. All injections are used with Lidocaine, Bupivacaine and dexamethasone. Occasionally urine drug screen is needed to verify patient's compliance with our office pain contract. This is ordered based off specific treatments related to chronic pain with the potential to abuse certain medications.
--- NOTE | 2025-03-13 10:20 | P.PCN_ITS ---
Procedure Date: 03/13/25 Time: 10:56 Anesthesiologist:: Marcia Guerrero APRN Complications:: None Pre-procedure Diagnosis:: Degenerative disc disease of the lumbar spine with lumbar radiculopathy symptoms Post-procedure Diagnosis:: Same Indications for Procedure:: Patient is a pleasant 69-year-old male who presents today for intrathecal refill. He rates his pain today a 5 or 6 out of 10. Patient did recently have his pump dropped by 50% and states he really did not notice a difference from this and would like to see about going back to the previous dosage. Patient does state that in times of worsening pain he will occasionally use marijuana and is looking into the medical marijuana card. Patient was concerned that this would affect her pump medication. Patient is currently managed with morphine 2 mg/mL with a daily dose of 0.0962 mg/day. He denies any side effects. His [facility] er has been reviewed and is appropriate. Physical Exam: General: Alert and oriented x3, no acute distress, pleasant and cooperative Lungs: Respirations even and unlabored, symmetrical chest expansion Eyes: PERRL Musculoskeletal: Flexion and extension of lumbar [spine] somewhat guarded secondary to pain, [antalgic gait noted] Neurological: Speech clear, no gross sensory deficit Procedure Details:: Informed consent was obtained and the risk and benefits of the procedure were explained to the patient. The patient had noninvasive monitoring placed including noninvasive blood pressure cuff and pulse oximeter. Patient's pump was interrogated. The area over the pump was cleansed with chlorhexidine as a cleansing solution. In sterile fashion the pump was accessed with a 22-gauge needle. Approximately 10.6 mls of the pump solution was removed and discarded appropriately. The pump was then refilled with 20 mL's of morphine 2 mg/mL. The needle was withdrawn and a bandage was placed over the puncture site. The infusion rate was reprogrammed and raised by 50% to morphine 0.1444 mg/day. The patient tolerated well with no complication. Plan and Disposition:: Patient tolerated the procedure well with no complications and was discharged neurologically intact. I did discuss with the patient that we do understand that with the medical marijuana card that he can use this medication as needed. Patient was counseled that we would just request open communication to review over and in future it may be something that we would possibly come down off of his dosage based off of the marijuana use. Patient is on a very low dose in his intrathecal pump. Patient acknowledges understanding agrees with this plan of care. Patient will return to clinic on or before their next intrathecal refill date. We will see the patient back in the clinic at the next intrathecal refill. Patient has been instructed to contact the clinic with any concerns before the next appointment. Dr. Jackson has reviewed this note and agrees with this plan of care. This note was dictated using voice recognition software and make contain errors or omissions. -- It Is medically necessary for this patient to continue to have their intrathecal pump refilled at regular intervals. This patient had an intrathecal pain pump implanted after meeting criteria of chronic intractable pain for greater than 3 months and failing conservative treatments. Patient has committed and been compliant to the treatment plan and all planned follow up care. Since implantation of the intrathecal pain pump, the patient has had decreased pain and been more functional. Oral medications have been reduced including intake of oral opioids. Patient continues to do well with intrathecal therapy with decrease in pain symptoms and increase in functional status. Stopping intrathecal medications can lead to life threatening withdrawal, seizures, cardiac arrest, severe pain, and possible . Pumps that are not refilled at regular intervals can be damages and cause and need for replacement. We continually titrate dose and concentration to optimize pain relief and function. We are limited in concentration for certain drugs to safely deliver medications through the pump and stay within the recommendations from the Polyanalgesic Consensus Committee Guidelines. Depending on dose and concentration these pumps may need to be refilled sooner than 3 months as we titrate. A UDS is needed to verify patient's compliance with our office pain contract. This is ordered based off specific treatments related to chronic pain with the potential to abuse certain medications.
[2025-03-13 10:29] VITALS: BP 106/67; PULSE 59; RESP 16; O2SAT 97; BMI 25.7
[2025-03-13 10:52] VITALS: BP 141/82; PULSE 54; RESP 18; O2SAT 97
[2025-03-13 11:08] VITALS: BP 103/65; PULSE 50; RESP 18; O2SAT 96
== END 2025-03-13 11:08 | disposition home or self-care (01) ==
PROVIDERS: PCP Family Medicine; Visit Provider Nurse Practitioner Family
DX: Z45.1 Encounter for adjustment and management of infusion pump (principal); M51.16 Intervertebral disc disorders with radiculopathy, lumbar region; I10 Essential (primary) hypertension; E78.5 Hyperlipidemia, unspecified; Z86.73 Personal history of transient ischemic attack (TIA), and cerebral infarction without residual deficits; Z98.1 Arthrodesis status; Z87.891 Personal history of nicotine dependence; Z79.899 Other long term (current) drug therapy; Z79.82 Long term (current) use of aspirin; Z79.890 Hormone replacement therapy; Z88.2 Allergy status to sulfonamides
CPT/HCPCS: 62370

== ENCOUNTER 2025-05-13 11:13 | Outpatient (POV) | payer MEDICARE, SELFPAY ==
--- OUTSIDE RECORDS SUMMARY | 2025-05-13 11:23 | XMS_ITS | Encounter Summary ---
Author Organization [facility] Address [address] [place] [address] Care Team Providers Care Assistant Merchandise Manager Name Role Phone Nikos Parada MD Primary Care Provider [phone] Source Comments This information has been disclosed to you from confidential records protectfrom disclosure by state law. You shall make no further disclosure of thisinformation without the specific, written, and informed release of theindividual to whom it pertains, or as otherwise permitted by law. A generalauthorization for the release of medical or other information is not sufficientfor the purposes of the release of HIV test results or diagnoses. [id number] Health Encounter Details Date Type Department Care Team (Late st Contact Info) Description 06/23/2020 Surgery Scheduling [facility] at [facility] [address] [place] [address] Monica Hernandez MD [address] [place], [place] [address] Social History Tobacco Use Types Packs/Day Years Used Date Smoking Tobacco: Former Smokeless Tobacco: Never Alcohol Use Standard Drinks/Week Comments Yes 0 (1 standard drink = 0.6 oz pur e alcohol) Socially AUDIT-C Answer Date Recorded Q1: How often do you have a drink containing alc ohol? Never 06/02/2020 Average Number of Drinks Not on file 020 Frequency of Binge Drinking Not on file 05/2020 Sex and Gender Information Value Date Recorded Sex Assigned at Not on file Legal Sex Male 9:47 AM EDT Gender Identity Not on file Sexual Orientation Not on file COVID-19 Exposure Response Date Recorded In the last month, have you been in contact with someone who was confirmed or suspected to have Coronavirus / COVID-19? No / Unsure 06/23/2020 3:58 PM EDT documented as of this encounter Plan of Treatment Not on file documented as of this encounter Visit Diagnoses Not on filedocumented in this encounter Care Teams Assistant Merchandise Manager Relationship Specialty Start Date End Date Nikos Parada MD [address] [address] PCP - General Family Medicine 05/03/20 documented as of this encounter
--- OUTSIDE RECORDS SUMMARY | 2025-05-13 11:23 | XMS_ITS | Clinical Summary ---
Author Organization [facility] Address [address] [place] [id number] Care Team Providers Care Optical Systems Engineer Name Role Phone Nikos Parada MD Primary Care Provider [phone] Source Comments This information has been disclosed to you from confidential records protectedfrom disclosure by state law. You shall make no further disclosure of thisinformation without the specific, written, and informed release of theindividual to whom it pertains, or as otherwise permitted by law. A generalauthorization for the release of medical or other information is not sufficientfor the purposes of therelease of HIV test results or diagnoses. [id number] Allerg[facility] Active Allergy Reactions Criticality Noted Date Comments Sulfa (Sulfonamide Antibiotics) Rash Low 02/22 Medications amLODIPine (NORVASC) 10 MG tablet Take by mouth. Activ e atorvastatin (LIPITOR) 80 MG tablet Take by mouth. 7 Active losartan (COZAAR) 100 MG tablet Take by mouth. A ctive sertraline (ZOLOFT) 50 MG tablet Take by mouth. 8 Active zolpidem (AMBIEN) 10 mg tablet Take by mouth. Ac tive hydroCHLOROthiazid e (HYDRODIURIL) 25 MG tablet Take 25 mg by mouth daily. 25mg AM; 12.5mg PM Active multivitamin (THERAGRAN) tablet Take 1 tablet by mouth daily. Active mupirocin (BACTROBAN) 2 % ointmentIndication s:MRSA (methicillin resistant Staphylococcus aureus) Apply to bilateral nares two times a day for 5 days before surgery 22 g 0 Active senna (SENOKOT) 8.6 mg tablet Take 1 tablet by mouth 2 times a day. 30 tablet 1 Active methocarbamoL (ROBAXIN) 750 MG tablet Take 1 tablet (750 mg total) by mouth every 6 hours. 90 tablet 1 Active acetaminophen (TYLENOL) 325 MG tablet Take 2 tablets (650 mg total) by mouth every 6 hours as needed. 60 tablet 1 Active methylPREDNISolone (MEDROL, KETAN,) 4 mg tabletIndications: S/P lumbar fusion follow package directions 21 Package 1 Active Active Problems No known active problems Social History Tobacco Use Types Packs/Day Years Used Date Smoking Tobacco: Former Cigarettes Q uit: 09/24/1996 Smokeless Tobacco: Never Tobacco Cessation:Counseling Given: No Alcohol Use Standard Drinks/Week Comments Yes 0 (1 standard drink = 0.6 oz pur e alcohol) Socially AUDIT-C Answer Date Recorded Q1: How often do you have a drink containing alc ohol? Never 09/30/2020 Average Number of Drinks Not on file 021 Frequency of Binge Drinking Not on file 03/2021 PHQ-2 Answer Date Recorded PHQ-2 Total Score 0 12/01/2020 Sex and Gender Information Value Date Recorded Sex Assigned at Not on file Legal Sex Male 9:47 AM EDT Gender Identity Not on file Sexual Orientation Not on file Last Filed Vital Signs Vital Sign Reading Time Taken Comments Blood Pressure 125/78 10/20/2020 4:36 PM EST Pulse 74 10/20/2020 4:36 PM EST Temperature 36.3 C (97.4 F) 10/03/2020 8:35 AM EST Respiratory Rate 18 10/03/2020 8:35 AM EST Oxygen Saturation 98% 10/20/2020 4:36 PM EST Inhaled Oxygen Concentration 98% 10/20/2020 4 :36 PM EST Weight 90.7 kg (200 lb) 10/20/2020 4:36 PM EST Height 177.8 cm (5' 10 ) 10/20/2020 4:36 PM EST Body Mass Index 28.7 10/20/2020 4:36 PM EST Plan of Treatment Not on file Medical Devices Implanted Type Area Aircraft Communicator Device Identifier Shelf Expiration Date Model / Serial / Lot Lateral Cage Implanted:Qty: 1 on 09/28/2020 by Monica Hernandez MD at [facility] Cage N/A: Spine Lumbar [id number] / / Description:15 degrees Graft Bone Vivigen Formable Cellular Bone Matrix 5 Cc - [id number] Implanted:Qty: 1 on 09/28/2020 by Monica Hernandez MD at [facility] Graft N/A: Spine Lumbar LIFE NET 09/09/2021 -1600-002 / / [id number] Graft Bone Infuse Rhbmp-2 Bovine Collagen Xs Kit Lumbar Taper Fusion Device - [id number] Implanted:Qty: 1 on 09/28/2020 by Monica Hernandez MD at [facility] Graft N/A: Spine Lumbar [employer] SOFAMOR DANEK 05/24/2021 [id number] / / [id number] Graft Bone Vivigen Formable Cellular Demineralize Fiber Large Allograft - [id number] Implanted:Qty: 1 on 09/30/2020 by Monica Hernandez MD at [facility] Graft N/A: Spine Lumbar LIFE NET 09/01/2021 -1600-003 / [id number] / Description:CODE: [id number] ID: [id number] Jones Spnl Vpr 2 110mm 5.5mm Ti Lrdtc Ns Mis - [id number] Implanted:Qty: 2 on 09/30/2020 by Monica Hernandez MD at [facility] Orthopedic N/A: Spine Lumbar DEPUY SPINE [id number] / / Screw Bn 50mm 6mm Pa 1 Innie Spne Xpdm - [id number] Implanted:Qty: 2 on 09/30/2020 by Monica Hernandez MD at [facility] Screw N/A: Spine Lumbar DEPUY SPINE [id number] / / Screw Set Expedium Od5.5 Mm Spine 1 Inner - [id number] Implanted:Qty: 2 on 09/30/2020 by Monica Hernandez MD at [facility] Screw N/A: Spine Lumbar DEPUY SPINE [id number] / / Insurance [employer] CHOICE PPO MEDICARE Advance Directives For more information, please contact: [phone] Documents on File Type Date Recorded Patient Sales Assoc Expl anation Living Will Testament - scan 10/05/2020 3:30 PM Durable Power of Overlock Operator - scan 10/05/2020 3:30 PM * Full Code (Latest Code Status on File) Date Activated Date Inactivated Comments 09/28/2020 11:51 PM 10/03/2020 5:21 PM Care Teams Optical Systems Engineer Relationship Specialty Start Date End Date Nikos Parada MD [address] [place] [address] PCP - General Family Medicine 05/03/20
--- OUTSIDE RECORDS SUMMARY | 2025-05-13 11:23 | XMS_ITS | Clinical Summary ---
Author Organization [facility] Address [facility] [place] [address] Phone Care Team Providers Care Product Management Analyst Name Role Phone Nikos Parada MD Primary Care Provider [phone] Allergies Active Allergy Reactions Criticality Noted Date Comments Lisinopril Cough 11/17/2018 Sulfa (Sulfonamide Antibiotics) Rash 10/26 Medications aspirin 81 mg Oral Tablet, Delayed Release (E.C.) Take 81 mg by mouth daily. Takes 2 tablets Active multivitamin with minerals (ONE-A-DAY 50 PLUS ORAL) Take 1 Tab by mouth daily. Active Coenzyme Q10 100 mg Oral Capsule Take 2 Caps by mouth daily. Active losartan (COZAAR) 100 mg Oral Tablet Take 100 mg by mouth nightly. Active amLODIPine (NORVASC) 10 mg Oral Tablet Take 10 mg by mouth nightly. Active atorvastatin (LIPITOR) 80 mg Oral Tablet Take 80 mg by mouth nightly. Active fish oil omega 3-dha-epa 300-1,000 mg Oral Capsule, Delayed Release(E.C.) Take 1 g by mouth nightly. Active loratadine (CLARITIN) 10 mg Oral Tablet Take 10 mg by mouth nightly. Active sertraline (ZOLOFT) 50 mg Oral Tablet Take 50 mg by mouth nightly. Active zolpidem (AMBIEN) 10 mg Oral Tablet Take 10 mg by mouth nightly. Active Active Problems Problem Noted Date Diagnosed Date Bilateral carotid artery stenosis 11/26/2018 Overview (11/26/2018): Added automatically from request for surgery [id number] Stenosis of left carotid artery 11/19/2018 Acute chest pain 11/17/2018 Essential hypertension 11/17/2018 H/O: CVA (cerebrovascular accident) 11/17/2018 HLD (hyperlipidemia) 11/17/2018 Surgical History Surgery Date Site/Laterality Comments COLONOSCOPY BACK SURGERY fusion and laminectomy about 20 years ago CAROTID ENDARTERECTOMY 12/09/2018 Left left carotid endarterectomy with 8 mm Bovine patch with intraoperative shunting. Ultrasound carotid duplex imaging, intraoperative quality improvement consultant; Surgeon: Omar Walker MD; Location: [facility]; Service: Vascular Medical devices from this surgery are in the Medical Devices section. Medical History Medical History Date Comments Hypertension Hypercholesteremia Stroke (HCC) 05/2017 hemaparesis, lef t Carotid artery occlusion Allergic rhinitis Family History Medical History Relation Name Comments Stroke Brother Cancer Father Stroke Father Arthritis Mother Cancer Sister Relation Name Status Comments Brother Father prostate Mother Sister breast cancer Social History Tobacco Use Types Packs/Day Years Used Date Smoking Tobacco: Former Cigarettes 1 45.5 0 10/18/1971 - 04/17/2017 Smokeless Tobacco: Never Alcohol Use Standard Drinks/Week Comments No 0 (1 standard drink = 0.6 oz pur e alcohol) rarely Sex and Gender Information Value Date Recorded Sex Assigned at Not on file Legal Sex Male 6:35 PM EST Gender Identity Not on file Sexual Orientation Not on file Obstetrics History Last Filed Vital Signs Vital Sign Reading Time Taken Comments Blood Pressure 127/75 05/10/2022 7:58 PM EDT Pulse 72 05/10/2022 7:58 PM EDT Temperature 37 C (98.6 F) 05/10/2022 7:58 PM EDT Respiratory Rate 16 05/10/2022 7:58 PM EDT Oxygen Saturation 96% 05/10/2022 7:58 PM EDT Inhaled Oxygen Concentration - - Weight 89.4 kg (197 lb) 12/24/2018 10:27 AM EDT Height 177.8 cm (5' 10 ) 12/24/2018 10:27 AM EDT Body Mass Index 28.27 12/24/2018 10:27 AM EDT Plan of Treatment Health Maintenance Due Date Last Done Comments Wellness Exam Medicare 1958 Hepatitis C Screening 1973 Cologuard 2000 Colon Cancer Screening 2000 Colonoscopy 2000 FIT 2000 Sigmoidoscopy 2000 Virtual Colonography 2000 Low Dose Lung Cancer Screening 2005 Pneumococcal Vaccine 50+ (1 of 1 - PCV) 2005 Zoster (1 of 2) 2005 AAA Screening 2020 COVID-19 Vaccine ( season) 2024 02/22/2022, 10/12/2021, 12/30/2020, Additional history exists Influenza Vaccine (#1) 2025 DTaP/TDaP/Td (2 - Td or Tdap) 09/22/2026 09/22/2016 Hepatitis B Vaccine Aged Out No longe r eligible based on patient's age to complete this topic Meningococcal B Vaccine Aged Out No l onger eligible based on patient's age to complete this topic Medical Devices Implanted Type Area Bottle Capping Machine Operator Device Identifier Shelf Expiration Date Model / Serial / Lot Hardware Spine Patch Vascular Biologic Xenosure 0.8cm X 8cm - [id number] Implanted:Qty: 1 on 12/09/2018 by Omar Walker MD at [facility] Left: Carotid LEMAITRE VASCULAR 04/20/2024 [id number] / / [id number] Insurance ZHENG WANG MR ZHENG WANG MR ZHENG WANG MR Advance Directives For more information, please contact: [phone] Documents on File Type Date Recorded Patient Financial Reporting Manager Expl anation ADVANCE DIRECTIVE 12/09/2018 6:18 AM * Full Code (Latest Code Status on File) Date Activated Date Inactivated Comments 11/17/2018 11:25 PM 11/19/2018 11:08 PM Care Teams Product Management Analyst Relationship Specialty Start Date End Date Nikos Parada MD PCP - General Family Medicine 12/24/18
--- NOTE | 2025-05-13 12:18 | A.OFFVIS_ITS ---
[facility] Disclaimer: The information contained in this section may have been updated after the patient was seen, as this information can be updated by other users. Medical History Carotid artery disease HLD (hyperlipidemia) Stroke HTN (hypertension) Surgical History History of lumbar fusion History of laminectomy H/O carotid endarterectomy Family History Other No significant family history Social History Smoking Status: Former smoker alcohol intake: never substance use type: denies use current occupational status: other Travel in the last 8 weeks?: None household members: significant other housing: house caffeine: Yes Have you lived/traveled outside US in past 30 days?: No Contact w/someone who lives/traveled outside US past 30 days?: No Exposure to someone with infectious disease in past 14 days?: No Do you have a fever (greater than 100.4 F or 38 C)?: No Have you tested positive for COVID-19?: No Exposed to someone with COVID-19 in past 14 days?: No Do you have a sore throat?: No Do you have a cough?: No Do you have any weakness?: No Do you have any diarrhea?: No Are you experiencing any unusual bleeding?: No Do you have any muscle aches/pain?: No Do you have any abdominal pain?: No Are you experiencing loss of taste or smell?: No PM Subjective & Objective Subjective Subjective:: Patient is a pleasant 70-year-old male who presents today for adjustment on his PTC device. Patient rates his pain today at 3 out of 10. He denies any new falls or injuries. He does state that they have been redoing his front porch and feels that during this activity he will occasionally have increased pain and would like to use his bolus device. Patient does feel like overall he is dosage on his pump is working well. He denies any other changes. Patient is currently managed with morphine 2 mg with a daily dose of 0.1444 mg/day. He denies any side effects. His Hernan has been reviewed and is appropriate. Review of Systems: General: No recent weight changes, no fever, no sleep disturbances Respiratory: No cough, no shortness of air, no recurring pulmonary infections Cardiovascular/peripheral vascular: No chest pain, no palpitations, no edema, no shortness of breath Gastrointestinal: No new onset incontinence, normal bowel movements reported Genitourinary: No new onset incontinence Musculoskeletal: Low back pain Psychiatric: [Normal mood/affect] Neurological: [Denies weakness in extremities], [denies balance issues] Pain at rest (0-10 scale): 3 Objective Objective:: Physical Exam: General: Alert and oriented x3, no acute distress, pleasant and cooperative Lungs: Respirations even and unlabored, symmetrical chest expansion Eyes: PERRL Musculoskeletal: Flexion and extension of lumbar [spine] somewhat guarded secondary to pain, [antalgic gait noted] Neurological: Speech clear, no gross sensory deficit Has patient had previous pain injection?: No Conservative treatment options previously tried: Home exercise plan Length of treatment: Longer than 12 weeks Meds Home Medications and Allergies Home Medications ?Medication ?Instructions ?Recorded ?Confirmed ?Type multivitamin 1 cap PO DAILY VITAMIN 04/0203/13/25 History morphine (PF) 1 mg/mL injection 1 mg epidural CONT Dagoberto n 05/25/23 03/13/25 History solution aspirin 81 mg tablet,delayed 81 mg PO DAILY Blood thin ner #100 12/24/23 03/13/25 Rx release (Adult Low Dose Aspirin) tabs peg 3350-electrolytes 236 240 ml PO Q10M colonscopy #4 ,000 mL 08/22/24 03/13/25 Rx gram-22.74 gram-6.74 gram-5.86 gram solution (Golytely) testosterone 1 % (25 mg/2.5 gram) 25 mg topical DAILY 08/29/24 03/13/25 History transdermal gel packet (AndroGel) atorvastatin 80 mg tablet (Lipitor) 80 mg PO DAILY Cho lesterol #90 tabs 12/23/24 03/13/25 Rx losartan 100 1 tab PO DAILY BLOOD PRESSUR E #90 12/23/24 03/13/25 Rx mg-hydrochlorothiazide 12.5 mg tabs tablet (Hyzaar) zolpidem 10 mg tablet (Ambien) 10 mg PO HS PRN sleep # 30 tabs 01/21/25 03/13/25 Rx sertraline 50 mg tablet See Rx Instructions .Route 0 03/20/25 Rx .COMPLEX #90 tabs testosterone (AndroGel) 2 pump topical DAILY #75 gra ms 05/12/25 Rx New Prescriptions to Start Prescriptions: Allergies Allergy/AdvReac Type Severity Reaction Status Date / Time Sulfa (Sulfonamide Allergy Severe Rash Verified 01/05/25 13:02 Antibiotics) Assessment and Plan *Assessment and plan (1) Low back pain: Status: Acute Category: Medical Code(s): M54.50 - Low back pain, unspecified (2) Degenerative disc disease, lumbar: Status: Acute Category: Medical Code(s): M51.369 - Other intervertebral disc degeneration, lumbar region without mention of lumbar back pain or lower extremity pain Plan Patient did get his PTC device set up with 10% of his overall dosage and 4 bolu ses available per day. Patient agrees with that plan of care. Patient will return to clinic on his next pump refill date. Patient tolerated the procedure well with no complications and was discharged neurologically intact. Patient will return to clinic on or before their next intrathecal refill date. We will see the patient back in the clinic at the next intrathecal refill. Patient has been instructed to contact the clinic with any concerns before the next appointment. Dr. Jackson has reviewed this note and agrees with this plan of care. This note was dictated using voice recognition software and make contain errors or omissions. -- It Is medically necessary for this patient to continue to have their intrathecal pump refilled at regular intervals. This patient had an intrathecal pain pump implanted after meeting criteria of chronic intractable pain for greater than 3 months and failing conservative treatments. Patient has committed and been compliant to the treatment plan and all planned follow up care. Since implantation of the intrathecal pain pump, the patient has had decreased pain and been more functional. Oral medications have been reduced including intake of oral opioids. Patient continues to do well with intrathecal therapy with decrease in pain symptoms and increase in functional status. Stopping intrathecal medications can lead to life threatening withdrawal, seizures, cardiac arrest, severe pain, and possible . Pumps that are not refilled at regular intervals can be damages and cause and need for replacement. We continually titrate dose and concentration to optimize pain relief and function. We are limited in concentration for certain drugs to safely deliver medications through the pump and stay within the recommendations from the Polyanalgesic Con sensus Committee Guidelines. Depending on dose and concentration these pumps may need to be refilled sooner than 3 months as we titrate. A UDS is needed to verify patient's compliance with our office pain contract. This is ordered based off specific treatments related to chronic pain with the potential to abuse certain medications.
[2025-05-13 12:52] VITALS: BP 104/69; PULSE 81; RESP 14; O2SAT 100; BMI 25.7
== END 2025-05-13 23:59 | disposition home or self-care (01) ==
LOC: SC.PAIN 11:14
PROVIDERS: PCP Family Medicine; Visit Provider Nurse Practitioner Family
DX: M51.360 Other intervertebral disc degeneration, lumbar region with discogenic back pain only (principal); Z79.891 Long term (current) use of opiate analgesic
CPT/HCPCS: 99212; G0463